=== PATIENT | female | born 1980 | race American Indian/Alaskan Native ===

== ENCOUNTER 2016-10-04 12:23 | Emergency (ER) | payer MEDICAID ==
[2016-10-04 12:32] VITALS: BP 141/100
[2016-10-04 13:02] LABS: Basophils % (Auto) 1.1 % (0.0-1.8); Eosinophils % (Auto) 2.5 % (0.0-4.3); Hematocrit 36.5 % (30.3-42.9); Hemoglobin 12.5 gm/dl (10.1-14.3); Mean Corpuscular HGB Conc 34 % (30-34); Mean Corpuscular Hemoglobin 29 pg (28-32); Mean Corpuscular Volume 85 fl (79-97); Platelet Count 228 K/mm3 (140-440); Red Cell Distribution Width 13.6 % (13.2-15.2); White Blood Count 7.1 K/mm3 (4.5-11.0)
--- NOTE | 2016-10-04 15:36 | Ultrasound Report ---
FINAL REPORT PROCEDURE: US OB TRANSVAGINAL TECHNIQUE: Real-time transvaginal sonography of the uterus, placenta, amniotic fluid, adnexa, and fetus was performed with image documentation. Measurements were obtained to determine age/size. M-mode Doppler was used to document heartbeat. CPT 78912 HISTORY: poss misscarriage COMPARISON: No prior studies are available for comparison. FINDINGS: A fluid-filled structure is noted in the endometrial cavity measuring 35 millimeters in average diameter corresponding to 8 weeks and 5 days of gestational age. There is no evidence of any pole. Uterus measures 12 x 8 x 9 centimeters in size. A large well-defined cystic lesion measuring 5.5 x 4.6 x 5.4 centimeters is noted in the left adnexal region. There is a hypoechoic focal area in the right fundus measuring 2.2 x 1.9 x 2.5 centimeters IMPRESSION: A fluid filled structure in the endometrial cavity without pole most likely represents a partial . The fluid-filled sac diameter corresponds to 8 weeks and 5 days of gestational age. A simple appearing cyst in the left ovary measuring 5.5 x 4.6 x 5.4 centimeters. A hypoechoic lesion in the right fundus measuring 2.2 x 1.9 x 2.5 centimeters most likely represents a fibroid.
--- NOTE | 2016-10-04 15:38 | Ultrasound Report ---
FINAL REPORT PROCEDURE: US OB \T\lt; = 14 WEEKS FETUS TECHNIQUE: Real-time transabdominal sonography of the uterus, placenta, amniotic fluid, adnexa, and fetus was performed with image documentation. Measurements were obtained to determine age/size. M-mode Doppler was used to document heartbeat. CPT 83236 HISTORY: poss misscarriage COMPARISON: No prior studies are available for comparison. FINDINGS: There is a fluid-filled structure in the uterine cavity measuring 35 millimeters corresponding to a gestational age of 8 weeks and 5 days. There is no evidence of any pole. Uterus measures 12 x 8 x 9 centimeters in size. A large well-defined cystic lesion is noted in the left adnexal region measuring 5.5 x 4.6 x 5.4 centimeters. A hypoechoic lesion measuring 2.2 x 1.9 x 2.5 centimeters is noted in the right fundus IMPRESSION: A fluid filled structure in the uterus without a pole most likely represents a partial . Sac size corresponds to 5 8 weeks and 5 days of gestational age. A cystic lesion in the left adnexal region most likely represents a simple ovarian cyst. Hypoechoic lesion of the fundus on the right most likely represents a fibroid.
--- NOTE | 2016-10-04 15:40 | Emergency Department Report ---
HPI - General Chief Complaint: Vaginal Bleeding Time Seen by Provider: 10/04/16 15:19 - HPI HPI: This is a 36-year-old Afro-[place] female presents to the emergency department with complaint of vaginal bleeding that began this morning around 10 AM and has continued since. She has used about 5 pads since this time. It is associated with some abdominal cramping. The patient believes himself to be about 12 weeks and with 9 living children. She did not take anything for symptoms prior to presentation. She denies any other past nuchal history. She is on vitamins. She has an appointment on Thursday for [facility]. ED Past Medical Hx - Past Medical History Hx Hypertension: No Hx Congestive Heart Failure: No Hx Diabetes: No Hx Deep Vein Thrombosis: No Hx Renal Disease: No Hx Sickle Cell Disease: No Hx Seizures: No Hx Asthma: Yes Hx COPD: No Hx HIV: No - Surgical History Past Surgical History?: No - Social History Smoking Status: Never Smoker Substance Use Type: None - Medications Home Medications: Home Medications Medication Instructions Recorded Confirmed Last Taken Type Acetaminophen/Codeine [Tylenol #3] 1 tab PO TID PRN #21 tab 02/13/15 01/29/16 Unknown Rx Ibuprofen [Motrin] 800 mg PO Q8HR PRN #60 tablet 02/13/15 01/29/16 Unknown Rx methOCARBAMOL [Robaxin TAB] 500 mg PO BID #20 tab 02/13/15 01/29/16 Unknown Rx Acetaminophen/Codeine [Tylenol #3] 1 tab PO Q6H PRN #14 tab 03/17/15 01/29/16 Unknown Rx Phenazopyridine [Pyridium] 200 mg PO BID #6 tab 03/17/15 01/29/16 Unknown Rx Sulfamethoxazole/Trimethoprim 1 each PO BID #14 tablet 03/17/15 01/29/16 Unknown Rx [Bactrim DS TAB] Acetaminophen/Codeine [Tylenol #3] 1 tab PO Q6H PRN #20 tab 03/29/15 01/29/16 Unknown Rx Ibuprofen [Motrin 800 MG tab] 800 mg PO Q8HR PRN #30 tablet 03/29/15 01/29/16 Unknown Rx Albuterol 2 puff PRN PRN 01/29/16 01/29/16 Unknown History HYDROcodone/APAP 5-325 [[place] 1 each PO Q6HR PRN #10 tablet 10/04/16 Unknown Rx 5/325] Misoprostol [Cytotec] 200 mcg PO Q4H #4 tablet 10/04/16 Unknown Rx ED Review of Systems ROS: Stated complaint: MISCARRIAGE Other details as noted in HPI Comment: All other systems reviewed and negative Constitutional: denies: chills, fever Eyes: denies: eye pain, eye discharge, vision change ENT: denies: ear pain, throat pain Respiratory: denies: cough, shortness of breath, wheezing Cardiovascular: denies: chest pain, palpitations Gastrointestinal: abdominal pain (abdominal cramping). denies: nausea, diarrhea Genitourinary: other (vaginal bleeding). denies: urgency, dysuria, discharge Musculoskeletal: denies: back pain, joint swelling, arthralgia Skin: denies: rash, lesions Neurological: denies: headache, weakness, paresthesias Physical Exam - Physical Exam Vital Signs: Vital Signs 10/04/16 12:30 Temperature 98.6 F Pulse Rate 70 Respiratory 18 Rate Blood Pressure 141/100 [Right] O2 Sat by Pulse 100 Oximetry Physical Exam: GENERAL: The patient is well-developed well-nourished. HEENT: Normocephalic. Atraumatic. Extraocular motions are intact. Patient has moist mucous membranes. Pupils equal reactive to light bilaterally. NECK: Supple. Trachea is midline. CHEST/LUNGS: Clear to auscultation. There is no respiratory distress noted. HEART/CARDIOVASCULAR: Regular. There is no tachycardia. There is no gallop rub or murmur. ABDOMEN: Abdomen is soft, nontender. Patient has normal bowel sounds. There is no abdominal distention. SKIN: Skin is warm and dry. NEURO: The patient is awake, alert, and oriented. The patient is cooperative. The patient has no focal neurologic deficits. The patient has normal speech. MUSCULOSKELETAL: There is no tenderness or deformity. There is no limitation range of motion. There is no evidence of acute injury. ED Course Vital Signs 10/04/16 12:30 Temperature 98.6 F Pulse Rate 70 Respiratory 18 Rate Blood Pressure 141/100 [Right] O2 Sat by Pulse 100 Oximetry - Consultations Consultation #1: 10/04/16 15:56 I spoke with and, the scrum product owner for [facility], who feels that the patient can be started on Cytotec every 4 hours 4 pills and follow up with them on Thursday as previous scheduled for what appears to be a partial miscarriage. ED Medical Decision Making - Lab Data Result diagrams: 10/04/16 12:42 - Radiology Data Radiology results: report reviewed PROCEDURE: US OB TRANSVAGINAL TECHNIQUE: Real-time transvaginal sonography of the uterus, placenta, amniotic fluid, adnexa, and fetus was performed with image documentation. Measurements were obtained to determine age/size. M-mode Doppler was used to document heartbeat. CPT 39303 HISTORY: poss misscarriage COMPARISON: No prior studies are available for comparison. FINDINGS: A fluid-filled structure is noted in the endometrial cavity measuring 35 millimeters in average diameter corresponding to 8 weeks and 5 days of gestational age. There is no evidence of any pole. Uterus measures 12 x 8 x 9 centimeters in size. A large well-defined cystic lesion measuring 5.5 x 4.6 x 5.4 centimeters is noted in the left adnexal region. There is a hypoechoic focal area in the right fundus measuring 2.2 x 1.9 x 2.5 centimeters IMPRESSION: A fluid filled structure in the endometrial cavity without pole most likely represents a partial . The fluid-filled sac diameter corresponds to 8 weeks and 5 days of gestational age. A simple appearing cyst in the left ovary measuring 5.5 x 4.6 x 5.4 centimeters. A hypoechoic lesion in the right fundus measuring 2.2 x 1.9 x 2.5 centimeters most likely represents a fibroid. - Medical Decision Making 36-year-old female who is allegedly about 12 weeks presents to the ER with some vaginal spotting and light abdominal cramping. Patient has a beta hCG of about 9800. Complete blood count is unremarkable. There is no significant discomfort to palpation of the abdomen and otherwise physical examination appears normal. Ultrasound however shows concern for partial as there is a fluid-filled sac in the uterus that would be about 9 weeks gestation there is no pole, movement, heart tones. I spoke with the [facility] service at the patient has an appointment with on Thursday and they recommend Cytotec and follow-up on Thursday. I spoke with the patient regarding the Cytotec, and the very mild but remote possibility that this is an early and dates could be off, but the patient says that she would like to take the Cytotec despite any risks or side effects. She was given 200 mg to be taken every 4 hours 4 and was told to keep an appointment with [facility]. She will return to the ER with any worsening of her symptoms or any acute distress. - Differential Diagnosis , threatened miscarriage, spontaneous miscarriage, fibroids Critical Care Time: No Critical care attestation.: If time is entered above; I have spent that time in minutes in the direct care of this critically ill patient, excluding procedure time. ED Disposition Clinical Impression: Incomplete miscarriage Disposition: DC- TO HOME OR SELFCARE Is pt being admited?: No Condition: Stable Instructions: Spontaneous Miscarriage (ED) Additional Instructions: Please follow-up with [facility] on Thursday as previously scheduled. Take the Cytotec as prescribed. Return to the emergency department with any worsening of your symptoms or any acute distress. You've been prescribed a medication that is sedating. Therefore this medication cannot be mixed with alcohol, or taken prior to driving, working, or being responsible for children. Prescriptions: HYDROcodone/APAP 5-325 [[place] 5/325] 1 each PO Q6HR PRN #10 tablet PRN Reason: Pain Misoprostol [Cytotec] 200 mcg PO Q4H #4 tablet Referrals: [facility] [Provider Group] - 10/06/16 Forms: Work/School Release Form(ED) Time of Disposition: 15:56
[2016-10-04 16:26] LABS: Bilirubin,Urine NEG (Negative); Blood,Urine LG (Negative); Ketones,Urine NEG (Negative); Leukocyte Esterase,Urine NEG (Negative); Nitrite,Urine NEG (Negative); Protein,Urine <15 mg/dL mg/dL (Negative); Urobilinogen,Urine < 2.0 mg/dL (<2.0)
[2016-10-04 16:27] LABS: RBC,Urine < 1.0 /HPF (0.0-6.0)
[2016-10-04 16:28] LABS: WBC,Urine < 1.0 /HPF (0.0-6.0)
== END 2016-10-04 16:06 | disposition home or self-care (01) ==
LOC: ED 12:23
DX: O03.4 Incomplete spontaneous abortion without complication (principal); J45.909 Unspecified asthma, uncomplicated; Z3A.12 12 weeks gestation of pregnancy
CPT/HCPCS: 36415; 76801; 76817; 81001; 84702; 85025; 86850; 86900; 86901

== ENCOUNTER 2017-01-11 10:18 | Emergency (ER) | payer MEDICAID ==
[2017-01-11 11:10] LABS: Hemoglobin 11.6 gm/dl (10.1-14.3); Mean Corpuscular HGB Conc 31 % (30-34); Mean Corpuscular Volume 76 fl (79-97); Platelet Count 325 K/mm3 (140-440); White Blood Count 6.2 K/mm3 (4.5-11.0)
[2017-01-11 11:18] LABS: Basophils % (Auto) 1.1 % (0.0-1.8); Eosinophils % (Auto) 2.4 % (0.0-4.3); Mean Corpuscular Hemoglobin 24 pg (28-32); Red Cell Distribution Width 21.2 % (13.2-15.2)
[2017-01-11 11:35] LABS: Anion Gap 16 mmol/L; BUN/Creatinine Ratio 16; Blood Urea Nitrogen 11 mg/dL (7-17); Calcium 8.9 mg/dL (8.4-10.2); Carbon Dioxide 23 mmol/L (22-30); Glucose 111 mg/dL (65-100); Potassium 3.8 mmol/L (3.6-5.0); Sodium 135 mmol/L (137-145)
[2017-01-11 13:30] LABS: INR 0.97 (0.87-1.13)
[2017-01-11 13:31] LABS: Partial Thromboplastin Time 33.9 Sec. (24.2-36.6)
--- NOTE | 2017-01-11 16:48 | Emergency Department Report ---
ED Chest Pain HPI - General Chief Complaint: Chest Pain Stated Complaint: CHEST PAIN Time Seen by Provider: 01/11/17 16:41 Source: patient Mode of arrival: Wheelchair Limitations: No Limitations - History of Present Illness Initial Comments: 36 yo female with lleft sided chest pain . since this morning at 0800 The pain continued for 2 hours and then she had a syncopal episode that she felt lasted one minute. pt describes pain as sharp, associated with nausea, no vomiting and associated with cough for few days. Pt has been her since early this am and seem by me at 1641. MD Complaint: chest pain -: Gradual, hour(s) (8) Onset: during rest Pain Location: left chest Pain Radiation: LUE (tingling) Severity scale (0 -10): 10 (when it began, but 5/10 now) Quality: sharp Consistency: constant Improves With: nothing Worsens With: nothing Context: recent illness (coughing) - Related Data Home Medications Medication Instructions Recorded Confirmed Last Taken Albuterol 2 puff PRN PRN 01/29/16 01/29/16 Unknown Previous Rx's Medication Instructions Recorded Last Taken Type Acetaminophen/Codeine [Tylenol #3] 1 tab PO TID PRN #21 tab 02/13/15 Unknown Rx Ibuprofen [Motrin] 800 mg PO Q8HR PRN #60 tablet 02/13/15 Unknown Rx methOCARBAMOL [Robaxin TAB] 500 mg PO BID #20 tab 02/13/15 Unknown Rx Acetaminophen/Codeine [Tylenol #3] 1 tab PO Q6H PRN #14 tab 03/17/15 Unknown Rx Phenazopyridine [Pyridium] 200 mg PO BID #6 tab 03/17/15 Unknown Rx Sulfamethoxazole/Trimethoprim 1 each PO BID #14 tablet 03/17/15 Unknown Rx [Bactrim DS TAB] Acetaminophen/Codeine [Tylenol #3] 1 tab PO Q6H PRN #20 tab 03/29/15 Unknown Rx Ibuprofen [Motrin 800 MG tab] 800 mg PO Q8HR PRN #30 tablet 03/29/15 Unknown Rx HYDROcodone/APAP 5-325 [[place] 1 each PO Q6HR PRN #10 tablet 10/04/16 Unknown Rx 5/325] Misoprostol [Cytotec] 200 mcg PO Q4H #4 tablet 07/15/17 Unknown Rx Allergies Allergy/AdvReac Type Severity Reaction Status Date / Time lisinopril AdvReac Rash Verified 01/11/17 10:33 Heart Score - HEART Score History: Slightly suspicious (NO SUSPICION BUT THSI WAS NOT A CHOICE GIVEN BY EMR) EKG: Normal Age: < 45 Risk factors: No known risk factors Troponin: < normal limit HEART Score: 0 - Critical Actions Critical Actions: 0-3 pts:0.9-1.7%risk of adverse cardiac event.Candidate for discharge ED Review of Systems ROS: Stated complaint: CHEST PAIN Other details as noted in HPI Constitutional: denies: chills, fever Eyes: denies: eye pain, eye discharge, vision change ENT: denies: ear pain, throat pain Respiratory: cough. denies: shortness of breath, wheezing Cardiovascular: chest pain, syncope. denies: palpitations, dyspnea on exertion , orthopnea Endocrine: no symptoms reported Gastrointestinal: nausea. denies: abdominal pain, vomiting, diarrhea Genitourinary: denies: urgency, dysuria, discharge Musculoskeletal: denies: back pain, joint swelling, arthralgia Skin: denies: rash, lesions Neurological: denies: headache, weakness, paresthesias Psychiatric: denies: anxiety, depression Hematological/Lymphatic: denies: easy bleeding, easy bruising ED Past Medical Hx - Past Medical History Hx Hypertension: Yes Hx Congestive Heart Failure: No Hx Diabetes: No Hx Deep Vein Thrombosis: No Hx Renal Disease: No Hx Sickle Cell Disease: No Hx Seizures: No Hx Asthma: Yes Hx COPD: No Hx HIV: No - Surgical History Past Surgical History?: No - Social History Smoking Status: Never Smoker Substance Use Type: None - Medications Home Medications: Home Medications Medication Instructions Recorded Confirmed Last Taken Type Acetaminophen/Codeine [Tylenol #3] 1 tab PO TID PRN #21 tab 02/13/15 01/29/16 Unknown Rx Ibuprofen [Motrin] 800 mg PO Q8HR PRN #60 tablet 02/13/15 01/29/16 Unknown Rx methOCARBAMOL [Robaxin TAB] 500 mg PO BID #20 tab 02/13/15 01/29/16 Unknown Rx Acetaminophen/Codeine [Tylenol #3] 1 tab PO Q6H PRN #14 tab 03/17/15 01/29/16 Unknown Rx Phenazopyridine [Pyridium] 200 mg PO BID #6 tab 03/17/15 01/29/16 Unknown Rx Sulfamethoxazole/Trimethoprim 1 each PO BID #14 tablet 03/17/15 01/29/16 Unknown Rx [Bactrim DS TAB] Acetaminophen/Codeine [Tylenol #3] 1 tab PO Q6H PRN #20 tab 03/29/15 01/29/16 Unknown Rx Ibuprofen [Motrin 800 MG tab] 800 mg PO Q8HR PRN #30 tablet 03/29/15 01/29/16 Unknown Rx Albuterol 2 puff PRN PRN 01/29/16 01/29/16 Unknown History HYDROcodone/APAP 5-325 [[place] 1 each PO Q6HR PRN #10 tablet 10/04/16 Unknown Rx 5/325] Misoprostol [Cytotec] 200 mcg PO Q4H #4 tablet 10/04/16 Unknown Rx ED Physical Exam - General Limitations: No Limitations General appearance: alert, in no apparent distress (does not seem to be in any pain whatsoever) - Head Head exam: Present: atraumatic, normocephalic - Eye Eye exam: Present: normal appearance - ENT ENT exam: Present: mucous membranes moist - Neck Neck exam: Present: normal inspection - Respiratory Respiratory exam: Present: normal lung sounds bilaterally. Absent: respiratory distress, wheezes, rales, rhonchi, stridor, accessory muscle use - Cardiovascular Cardiovascular Exam: Present: regular rate, normal rhythm, normal heart sounds. Absent: systolic murmur, diastolic murmur, rubs, gallop - GI/Abdominal GI/Abdominal exam: Present: soft, normal bowel sounds. Absent: tenderness, guarding, rebound - Rectal Rectal exam: Present: deferred - Extremities Exam Extremities exam: Present: normal inspection, full ROM - Back Exam Back exam: Present: normal inspection, full ROM - Neurological Exam Neurological exam: Present: alert, oriented X3 - Psychiatric Psychiatric exam: Present: depressed, flat affect - Skin Skin exam: Present: warm, dry, intact, normal color. Absent: rash ED Course Vital Signs 01/11/17 01/11/17 01/11/17 10:33 17:13 17:35 Temperature 98.8 F 98.6 F Pulse Rate 78 65 Pulse Rate [ 60 Bilateral Upper Lobe] Respiratory 16 16 Rate Respiratory 18 Rate [Bilateral Upper Lobe] Blood Pressure 164/107 Blood Pressure 150/90 [Left] O2 Sat by Pulse 100 100 Oximetry 01/11/17 17:53 Temperature Pulse Rate Pulse Rate [ 61 Bilateral Upper Lobe] Respiratory Rate Respiratory 18 Rate [Bilateral Upper Lobe] Blood Pressure Blood Pressure [Left] O2 Sat by Pulse Oximetry ED Medical Decision Making - Lab Data Result diagrams: 01/11/17 10:39 01/11/17 10:39 - EKG Data -: EKG Interpreted by Me EKG shows normal: sinus rhythm, axis, intervals, ST-T waves (nopn-specific) Critical care attestation.: If time is entered above; I have spent that time in minutes in the direct care of this critically ill patient, excluding procedure time. ED Disposition Clinical Impression: Chest pain Qualifiers: Chest pain type: unspecified Qualified Code(s): R07.9 - Chest pain, unspecified Syncope Qualifiers: Syncope type: unspecified Qualified Code(s): R55 - Syncope and collapse Qualifiers: Weeks of gestation: less than 8 weeks Qualified Code(s): Z3A.01 - Less than 8 weeks gestation of Disposition: DC-01 TO HOME OR SELFCARE Is pt being admited?: No Does the pt Need Aspirin: No Condition: Stable Instructions: Chest Pain (ED), Syncope (ED) Referrals: MAYO QUINTANILLA PA [Primary Care Provider] - 3-5 Days Forms: Work/School Release Form(ED)
[2017-01-11] MEDS ORDERED: NACL 0.9% 1000 ML 1,000 ML IV ONE (17:01)
[2017-01-11] MEDS ORDERED: PROVENTIL IH ONE (17:16)
[2017-01-11 20:18] LABS: Urine Drugs of Abuse Note Disclamer
[2017-01-11 22:09] VITALS: BP 124/76
== END 2017-01-11 22:19 | disposition home or self-care (01) ==
LOC: ED 10:18
DX: O26.891 Other specified pregnancy related conditions, first trimester (principal); R07.9 Chest pain, unspecified; R55 Syncope and collapse; Z3A.01 Less than 8 weeks gestation of pregnancy; I10 Essential (primary) hypertension; J45.909 Unspecified asthma, uncomplicated; Z88.8 Allergy status to other drugs, medicaments and biological substances
CPT/HCPCS: 36415; 80048; 80307; 84484; 84702; 85025; 85379; 85610; 85730; 93005; 93010; 94640; 96360; 96361; 99284; J7030

== ENCOUNTER 2017-04-03 06:27 | Emergency (ER) | payer MEDICAID ==
[2017-04-03 08:22] VITALS: BP 133/94
[2017-04-03 09:01] LABS: Basophils % (Auto) 0.6 % (0.0-1.8); Eosinophils # (Auto) 0.2 K/mm3 (0.0-0.4); Eosinophils % (Auto) 2.5 % (0.0-4.3); Hematocrit 32.8 % (30.3-42.9); Hemoglobin 10.5 gm/dl (10.1-14.3); Lymphocytes # (Auto) 1.5 K/mm3 (1.2-5.4); Mean Corpuscular HGB Conc 32 % (30-34); Mean Corpuscular Volume 76 fl (79-97); Monocytes # (Auto) 0.5 K/mm3 (0.0-0.8); Monocytes % (Auto) 6.2 % (0.0-7.3); Platelet Count 251 K/mm3 (140-440); Red Blood Count 4.29 M/mm3 (3.65-5.03); Red Cell Distribution Width 18.1 % (13.2-15.2)
[2017-04-03 09:05] LABS: Mean Corpuscular Hemoglobin 24 pg (28-32)
[2017-04-03 09:22] LABS: Alanine Aminotransferase 7 units/L (7-56); Albumin 3.2 g/dL (3.9-5); BUN/Creatinine Ratio 12; Blood Urea Nitrogen 6 mg/dL (7-17); Calcium 8.3 mg/dL (8.4-10.2); Hemolysis Index 4
[2017-04-03 09:30] LABS: Bilirubin,Direct < 0.2 mg/dL (0-0.2)
== END 2017-04-03 09:00 | disposition left against medical advice (07) ==
LOC: ED 06:27
DX: O26.892 Other specified pregnancy related conditions, second trimester (principal); R10.2 Pelvic and perineal pain; Z3A.17 17 weeks gestation of pregnancy; Z53.21 Procedure and treatment not carried out due to patient leaving prior to being seen by health care provider
CPT/HCPCS: 36415; 80048; 80074; 82150; 83690; 84702; 85025

== ENCOUNTER 2017-06-28 10:04 | Outpatient (CLI) | payer MEDICAID ==
[2017-06-28] MEDS ORDERED: BICITRA PO ONE ×2 (10:20→10:43)
[2017-06-28 10:32] VITALS: BP 123/78
[2017-06-28] MEDS ORDERED: LACTATED RINGERS 500 ML IV ONE (10:40)
== END 2017-06-28 11:35 | disposition home or self-care (01) ==
LOC: TRG 10:04
PROVIDERS: ATTEND Obstetrics & Gynecology
DX: O47.03 False labor before 37 completed weeks of gestation, third trimester (principal); Z3A.29 29 weeks gestation of pregnancy
CPT/HCPCS: 59025

== ENCOUNTER 2017-08-18 11:21 | Outpatient (CLI) | payer MEDICAID ==
[2017-08-18 11:34] VITALS: BP 139/85
[2017-08-18] MEDS ORDERED: LACTATED RINGERS 500 ML IV ONE (11:36)
== END 2017-08-18 13:15 | disposition home or self-care (01) ==
LOC: TRG 11:21
PROVIDERS: ATTEND Obstetrics & Gynecology
DX: O09.523 Supervision of elderly multigravida, third trimester (principal); O47.03 False labor before 37 completed weeks of gestation, third trimester; Z3A.36 36 weeks gestation of pregnancy
CPT/HCPCS: 59025

== ENCOUNTER 2018-03-28 12:45 | Emergency (ER) | payer MEDICAID ==
[2018-03-28 13:12] VITALS: BP 145/96
[2018-03-28 13:53] LABS: HCG Qualitative,Urine Negative (Negative)
[2018-03-28 15:24] LABS: Basophils # (Auto) 0.1 K/mm3 (0.0-0.1); Basophils % (Auto) 0.9 % (0.0-1.8); Eosinophils # (Auto) 0.3 K/mm3 (0.0-0.4); Eosinophils % (Auto) 4.6 % (0.0-4.3); Hematocrit 34.8 % (30.3-42.9); Hemoglobin 11.5 gm/dl (10.1-14.3); Lymphocytes # (Auto) 1.7 K/mm3 (1.2-5.4); Lymphocytes % (Auto) 24.2 % (13.4-35.0); Mean Corpuscular HGB Conc 33 % (30-34); Mean Corpuscular Volume 85 fl (79-97); Monocytes # (Auto) 0.4 K/mm3 (0.0-0.8); Monocytes % (Auto) 5.8 % (0.0-7.3); Platelet Count 305 K/mm3 (140-440); Red Blood Count 4.09 M/mm3 (3.65-5.03); Red Cell Distribution Width 14.4 % (13.2-15.2)
--- NOTE | 2018-03-28 15:32 | Emergency Department Report ---
ED Abdominal Pain HPI - General Chief Complaint: Abdominal Pain Stated Complaint: STOMACH PAIN Time Seen by Provider: 03/28/18 14:59 Source: patient Mode of arrival: Ambulatory Limitations: No Limitations - History of Present Illness Initial Comments: This is a 38-year-old female nontoxic, well nourished in appearance, no acute signs of distress presents to the ED with c/o of abdominal pain 4 days. Patient denies any nausea or vomiting. Patient describes abdominal pain as cramping and aching with level of 3/10 in the epigastric area. Patient denies chest pain, short of breath, fever, chills, headache, stiff neck, numbness, nausea, vomiting, or tingling. Patient denies any diarrhea or constipation. Patient denies any recent travels. Patient stated allergies to Lisinopril. Patient stated PMH includes asthma and gastric ulcers. MD Complaint: abdominal pain -: days(s) (4) Location: epigastric Radiation: none Migration to: no migration Severity: mild Severity scale (0 -10): 3 Quality: cramping, aching Consistency: constant Improves With: nothing Worsens With: nothing Associated Symptoms: denies: nausea, vomiting, diarrhea, fever, chills, constipation, dysuria, hematemesis, hematochezia, melena, hematuria, anorexia, syncope - Related Data Home Medications Medication Instructions Recorded Confirmed Last Taken Albuterol 2 puff PRN PRN 01/29/16 09/09/17 2 Weeks Ago ~08/26/17 Previous Rx's Medication Instructions Recorded Last Taken Type Ibuprofen [Motrin] 800 mg PO Q8HR PRN #12 tablet 02/27/18 Unknown Rx ALBUTEROL Inhaler (OR & NICU) 2 puff IH QID PRN #1 inhalation 03/13/18 Unknown Rx [ProAir HFA Inhaler] predniSONE [Deltasone] 20 mg PO QDAY #5 tab 03/13/18 Unknown Rx traMADol [Ultram] 50 mg PO Q6HR PRN #12 tablet 03/13/18 Unknown Rx Acetaminophen/Codeine [Tylenol 1 tab PO Q6H PRN #12 tab 03/28/18 Unknown Rx /Codeine # 3 tab] Allergies Allergy/AdvReac Type Severity Reaction Status Date / Time lisinopril AdvReac Rash Verified 01/11/17 10:33 ED Review of Systems ROS: Stated complaint: STOMACH PAIN Other details as noted in HPI Constitutional: denies: chills, fever Eyes: denies: eye pain, eye discharge, vision change ENT: denies: ear pain, throat pain Respiratory: denies: cough, shortness of breath, wheezing Cardiovascular: denies: chest pain, palpitations Endocrine: no symptoms reported Gastrointestinal: abdominal pain. denies: nausea, vomiting, diarrhea Genitourinary: denies: urgency, dysuria, discharge Musculoskeletal: denies: back pain, joint swelling, arthralgia Skin: denies: rash, lesions Neurological: denies: headache, weakness, paresthesias Psychiatric: denies: anxiety, depression Hematological/Lymphatic: denies: easy bleeding, easy bruising ED Past Medical Hx - Past Medical History Hx Hypertension: Yes Hx Congestive Heart Failure: No Hx Diabetes: No Hx Deep Vein Thrombosis: No Hx Renal Disease: No Hx Sickle Cell Disease: No Hx Seizures: No Hx Asthma: Yes (use albuterol inhaler as needed) Hx COPD: No Hx HIV: No - Social History Smoking Status: Never Smoker Substance Use Type: None - Medications Home Medications: Home Medications Medication Instructions Recorded Confirmed Last Taken Type Albuterol 2 puff PRN PRN 01/29/16 09/09/17 2 Weeks Ago History ~08/26/17 Ibuprofen [Motrin] 800 mg PO Q8HR PRN #12 tablet 02/27/18 Unknown Rx ALBUTEROL Inhaler (OR & NICU) 2 puff IH QID PRN #1 inhalation 03/13/18 Unknown Rx [ProAir HFA Inhaler] predniSONE [Deltasone] 20 mg PO QDAY #5 tab 03/13/18 Unknown Rx traMADol [Ultram] 50 mg PO Q6HR PRN #12 tablet 03/13/18 Unknown Rx Acetaminophen/Codeine [Tylenol 1 tab PO Q6H PRN #12 tab 03/28/18 Unknown Rx /Codeine # 3 tab] ED Physical Exam - General Limitations: No Limitations General appearance: alert, in no apparent distress - Head Head exam: Present: atraumatic, normocephalic - Eye Eye exam: Present: normal appearance - Neck Neck exam: Present: normal inspection, full ROM - Respiratory Respiratory exam: Present: normal lung sounds bilaterally. Absent: respiratory distress, wheezes, rales, rhonchi, stridor, chest wall tenderness, accessory muscle use, decreased breath sounds, prolonged expiratory - Cardiovascular Cardiovascular Exam: Present: regular rate, normal rhythm, normal heart sounds. Absent: bradycardia, tachycardia, irregular rhythm, systolic murmur, diastolic murmur, rubs, gallop - GI/Abdominal GI/Abdominal exam: Present: soft, tenderness (epigastric), normal bowel sounds. Absent: distended, guarding, rebound, rigid, diminished bowel sounds - Expanded GI/Abdominal Exam Expanded GI/Abdominal exam: Absent: psoas sign, Foreman's sign, Rovsing's sign, tenderness at Mcburney's Point, ascites - Extremities Exam Extremities exam: Present: normal inspection, full ROM - Back Exam Back exam: Present: normal inspection, full ROM - Neurological Exam Neurological exam: Present: alert, oriented X3 - Psychiatric Psychiatric exam: Present: normal affect, normal mood - Skin Skin exam: Present: warm, dry, intact, normal color. Absent: rash ED Course Vital Signs 03/28/18 13:08 Temperature 97.8 F Pulse Rate 74 Respiratory 16 Rate Blood Pressure 145/96 O2 Sat by Pulse 100 Oximetry - Reevaluation(s) Reevaluation #1: 03/28/18 15:34 Patient is speaking in full sentences with no signs of distress noted. ED Medical Decision Making - Lab Data Result diagrams: 03/28/18 15:10 03/28/18 15:10 - Medical Decision Making This is a 38-year-old female that presents with abdominal pain. Patient is stable and was examined by me. There is slight abdominal tenderness. Negative signs of symptoms of appendicitis. Labs obtained. UA obtained. CT of abdomen obtained and dictated by the radiologist. Patient is notified of the report with no questions noted by the patient. Vital signs are stable prior to discharge. Patient received medical treatment in the ED which patient stated symptoms has resolved and subsided. A by mouth challenge has been obtained and patient tolerated well with no nausea vomiting. Patient was notified of strict precautions of appendicitis symptoms and to return to the ED if symptoms occurs as soon as possible. Patient was also instructed to Follow-up with a primary care doctor in 3-5 days or if symptoms worsen and continue return to emergency room as soon as possible. At time of discharge, the patient does not seem toxic or ill in appearance. No acute signs of distress noted. Patient agrees to discharge treatment plan of care. No further questions noted by the patient. Critical care attestation.: If time is entered above; I have spent that time in minutes in the direct care of this critically ill patient, excluding procedure time. 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 Do not operate any machinery while taking Tylenol with codeine as this may cause drowsiness. Prescriptions: Acetaminophen/Codeine [Tylenol /Codeine # 3 tab] 1 tab PO Q6H PRN #12 tab PRN Reason: Pain , Severe (7-10) Referrals: PRIMARY MD STEVEN [Primary Care Provider] - 3-5 Days ALEX PAUL MD [Staff Physician] - 3-5 Days [facility] [Provider Group] - 3-5 Days Forms: Work/School Release Form(ED)
[2018-03-28 15:35] LABS: Alanine Aminotransferase 9 units/L (7-56); Albumin 3.7 g/dL (3.9-5); BUN/Creatinine Ratio 28; Blood Urea Nitrogen 14 mg/dL (7-17); Calcium 8.6 mg/dL (8.4-10.2); Hemolysis Index 12
[2018-03-28 15:37] LABS: Bilirubin,Direct < 0.2 mg/dL (0-0.2)
[2018-03-28] MEDS ORDERED: NACL 0.9% 1000 ML 1,000 ML IV ONE (16:13)
[2018-03-28] MEDS ORDERED: TORADOL IV ONE (16:15)
[2018-03-28 16:25] LABS: Bilirubin,Urine NEG (Negative); Blood,Urine NEG (Negative); Color,Urine Yellow (Yellow); Mucus,Urine FEW /HPF; Protein,Urine <15 mg/dL mg/dL (Negative)
--- NOTE | 2018-03-28 17:39 | Cat Scan Report ---
FINAL REPORT EXAM: CT ABDOMEN PELVIS W CON HISTORY: abd pain TECHNIQUE: Following IV administration of 100 cc of Omnipaque 300 axial helical imaging was performe d through the abdomen and pelvis with sagittal and coronal reformatted images obtained. Delayed axial helical imaging was also performed through the abdomen and pelvis. Comparison: None FINDINGS: The lung bases are without infiltrate, pneumothorax or pleural fluid collection. The liver, spleen, pancreas, kidneys and adrenal glands are unremarkable. The gallbladder is mildly distended and unremarkable. The bowel is normal caliber. There is a moderate amount of stool in the ascending and transverse colo n. The appendix appears to be normal caliber and contains air. There is no evidence of pneumoperitoneum or free fluid. The abdominal aorta is normal caliber. There is no evidence of pathologic intra-abdominal adenopathy by CT size criteria. The urinary bladder is mildly distended and unremarkable. The uterus and adnexal are unremarkable. The bony structures are notable for the appearance of a disc bulge at the L5-S1 level. IMPRESSION: 1. No evidence of an acute intra-abdominal process. 2. Appearance of a disc bulge at the L5-S1 level.
== END 2018-03-28 19:32 | disposition home or self-care (01) ==
LOC: ED 12:45
DX: R10.13 Epigastric pain (principal); I10 Essential (primary) hypertension; J45.909 Unspecified asthma, uncomplicated; Z88.8 Allergy status to other drugs, medicaments and biological substances
CPT/HCPCS: 36415; 74177; 80048; 80076; 81001; 81025; 83690; 85025; 87086; 96374; 99284; J1885; J7030; Q9967; 96361

== ENCOUNTER 2018-10-24 08:29 | Emergency (ER) | payer MEDICAID ==
--- NOTE | 2018-10-24 09:55 | Emergency Department Report ---
ED General Adult HPI - General Chief complaint: Upper Respiratory Infection Stated complaint: 17WKS /CHEST PAIN/COUGH Time Seen by Provider: 10/24/18 08:53 Source: patient Mode of arrival: Ambulatory Limitations: No Limitations - History of Present Illness Initial comments: This is a 38-year-old female nontoxic, well nourished in appearance, no acute signs of distress presents to the ED with c/o of cough and chest tightness. 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 Patient currently stated that the symptoms have subsided and resolved since incident. Patient states she is currently 17 weeks but denies any abdominal pain, pelvic pain or vaginal bleeding. Patient currently states she is asymptomatic. Denies any chest pain, shortness of breath, fever, chills, nausea, vomiting, headache or stiff neck. Allergies to lisinopril. -: This morning Radiation: non-radiation Severity scale (0 -10): 0 Improves with: none Worsens with: none Associated Symptoms: denies other symptoms. denies: confusion, chest pain, cough, diaphoresis, fever/chills, headaches, loss of appetite, malaise, nausea/vomiting, rash, seizure, shortness of breath, syncope, weakness Treatments Prior to Arrival: none - Related Data Home Medications Medication Instructions Recorded Confirmed Last Taken Albuterol 2 puff PRN PRN 01/29/16 09/09/17 2 Weeks Ago ~08/26/17 Previous Rx's Medication Instructions Recorded Last Taken Type Ibuprofen [Motrin] 800 mg PO Q8HR PRN #12 tablet 02/27/18 Unknown Rx ALBUTEROL Inhaler (OR & NICU) 2 puff IH QID PRN #1 inhalation 03/13/18 Unknown Rx [ProAir HFA Inhaler] predniSONE [Deltasone] 20 mg PO QDAY #5 tab 03/13/18 Unknown Rx traMADol [Ultram] 50 mg PO Q6HR PRN #12 tablet 03/13/18 Unknown Rx Acetaminophen/Codeine [Tylenol 1 tab PO Q6H PRN #12 tab 03/28/18 Unknown Rx /Codeine # 3 tab] Allergies Allergy/AdvReac Type Severity Reaction Status Date / Time lisinopril AdvReac Rash Verified 01/11/17 10:33 ED Review of Systems ROS: Stated complaint: 17WKS /CHEST PAIN/COUGH Other details as noted in HPI Constitutional: denies: chills, fever Eyes: denies: eye pain, eye discharge, vision change ENT: denies: ear pain, throat pain Respiratory: denies: cough, shortness of breath, wheezing Cardiovascular: denies: chest pain, palpitations Endocrine: no symptoms reported Gastrointestinal: denies: abdominal pain, nausea, diarrhea Genitourinary: denies: urgency, dysuria, discharge Musculoskeletal: denies: back pain, joint swelling, arthralgia Skin: denies: rash, lesions Neurological: denies: headache, weakness, paresthesias Psychiatric: denies: anxiety, depression Hematological/Lymphatic: denies: easy bleeding, easy bruising ED Past Medical Hx - Past Medical History Hx Hypertension: Yes Hx Congestive Heart Failure: No Hx Diabetes: No Hx Deep Vein Thrombosis: No Hx Renal Disease: No Hx Sickle Cell Disease: No Hx Seizures: No Hx Asthma: Yes (use albuterol inhaler as needed) Hx COPD: No Hx HIV: No - Social History Smoking Status: Never Smoker Substance Use Type: None - Medications Home Medications: Home Medications Medication Instructions Recorded Confirmed Last Taken Type Albuterol 2 puff PRN PRN 01/29/16 09/09/17 2 Weeks Ago History ~08/26/17 Ibuprofen [Motrin] 800 mg PO Q8HR PRN #12 tablet 02/27/18 Unknown Rx ALBUTEROL Inhaler (OR & NICU) 2 puff IH QID PRN #1 inhalation 03/13/18 Unknown Rx [ProAir HFA Inhaler] predniSONE [Deltasone] 20 mg PO QDAY #5 tab 03/13/18 Unknown Rx traMADol [Ultram] 50 mg PO Q6HR PRN #12 tablet 03/13/18 Unknown Rx Acetaminophen/Codeine [Tylenol 1 tab PO Q6H PRN #12 tab 03/28/18 Unknown Rx /Codeine # 3 tab] ED Physical Exam - General Limitations: No Limitations General appearance: alert, in no apparent distress - Head Head exam: Present: atraumatic, normocephalic - Eye Eye exam: Present: normal appearance - Neck Neck exam: Present: normal inspection, full ROM. Absent: tenderness, meningismus, lymphadenopathy - Respiratory Respiratory exam: Present: normal lung sounds bilaterally. Absent: respiratory distress, wheezes, rales, rhonchi, stridor, chest wall tenderness, accessory muscle use, decreased breath sounds, prolonged expiratory - Cardiovascular Cardiovascular Exam: Present: regular rate, normal rhythm, normal heart sounds. Absent: bradycardia, tachycardia, irregular rhythm, systolic murmur, diastolic murmur, rubs, gallop - GI/Abdominal GI/Abdominal exam: Present: soft, normal bowel sounds. Absent: distended, tenderness, guarding, rebound, rigid, diminished bowel sounds - Extremities Exam Extremities exam: Present: normal inspection, full ROM, normal capillary refill. Absent: tenderness - Back Exam Back exam: Present: normal inspection, full ROM. Absent: tenderness, CVA tender ness (R), CVA tenderness (L), muscle spasm, paraspinal tenderness, vertebral tenderness, rash noted - Neurological Exam Neurological exam: Present: alert, oriented X3, normal gait - Psychiatric Psychiatric exam: Present: normal affect, normal mood - Skin Skin exam: Present: warm, dry, intact, normal color. Absent: rash ED Course Vital Signs 10/24/18 08:49 Temperature 98.8 F Pulse Rate 83 Respiratory 16 Rate Blood Pressure 135/84 O2 Sat by Pulse 99 Oximetry - Reevaluation(s) Reevaluation #1: 10/24/18 09:53 Patient is speaking in full sentences with no signs of distress noted. ED Medical Decision Making - Medical Decision Making This is a 38-year-old female that presents with cough to certain smell. Patient is speaking in full sentences with no signs of distress noted. Patient was discussed with Dr. Ankush Gates and agrees to the plan of care. Patient is currently asymptomatic. She was instructed to Follow-up with a primary care doctor in 3-5 days or if symptoms worsen and continue return to emergency room as soon as possible. At time of discharge, the patient does not seem toxic or ill in appearance. No acute signs of distress noted. Patient agrees to discharge treatment plan of care. No further questions noted by the patient. Critical care attestation.: If time is entered above; I have spent that time in minutes in the direct care of this critically ill patient, excluding procedure time. ED Disposition Clinical Impression: Exposure to chemical compounds, Cough Disposition: DC-01 TO HOME OR SELFCARE Is pt being admited?: No Does the pt Need Aspirin: No Condition: Stable Additional Instructions: Follow-up with a primary care doctor in 3-5 days or if symptoms worsen and continue return to emergency room as soon as possible. Limit exposure to certain chemicals that causes these symptoms. Referrals: PRIMARY CARE, [Referring] - 3-5 Days ALEX PAUL MD [Staff Physician] - 3-5 Days [facility] [Outside] - 3-5 Days Forms: Work/School Release Form(ED)
[2018-10-24 10:28] VITALS: BP 131/81
== END 2018-10-24 10:27 | disposition home or self-care (01) ==
LOC: ED 08:29
DX: O26.892 Other specified pregnancy related conditions, second trimester (principal); R05 Cough; R07.89 Other chest pain; O10.912 Unspecified pre-existing hypertension complicating pregnancy, second trimester; O99.512 Diseases of the respiratory system complicating pregnancy, second trimester; J45.909 Unspecified asthma, uncomplicated; Z79.899 Other long term (current) drug therapy; Z88.8 Allergy status to other drugs, medicaments and biological substances; Z3A.17 17 weeks gestation of pregnancy
CPT/HCPCS: 99282

== ENCOUNTER 2019-03-08 18:44 | Inpatient (IN) | payer MEDICAID ==
[2019-03-08] MEDS ORDERED: ePHEDrine SULFATE 50 MG/1 ML INJ IV PRN (21:06)
[2019-03-08] MEDS ORDERED: MINERAL OIL 30 ML ORAL LIQD PO PRN (21:06)
[2019-03-08] MEDS ORDERED: fentaNYL 100 MCG/2 ML INJ IV PRN (21:06)
[2019-03-08] MEDS ORDERED: LIDOCAINE (2%) 20 MG/1 ML VIAL 20 ML MDV INFILTRATI ONE (21:06)
[2019-03-08] MEDS ORDERED: TERBUTALINE 1 MG/1 ML INJ IVP PRN (21:06)
[2019-03-08] MEDS ORDERED: TERBUTALINE 1 MG/1 ML INJ SUB-Q PRN (21:06)
[2019-03-08] MEDS ORDERED: LACTATED RINGERS 1,000 ML IV SCH (22:00)
[2019-03-08] MEDS ORDERED: OXYTOCIN 20 UNIT/1000ML DRIP 20 UNITS/1,000 ML BAG IV SCH (22:00)
[2019-03-08 22:32] LABS: Hematocrit 28.7 % (30.3-42.9); Hemoglobin 9.6 gm/dl (10.1-14.3); Mean Corpuscular HGB Conc 34 % (30-34); Mean Corpuscular Volume 78 fl (79-97); Platelet Count 255 K/mm3 (140-440); Red Blood Count 3.69 M/mm3 (3.65-5.03); Red Cell Distribution Width 17.1 % (13.2-15.2)
[2019-03-08 22:57] LABS: Uric Acid 4.8 mg/dL (3.5-7.6)
[2019-03-08] MEDS ORDERED: AMPICILLIN/NS 2 GM/100 ML 2 GM/100 ML BAG IV ONE ×2 (23:00→23:10)
[2019-03-08] MEDS ORDERED: DINOPROSTONE 10 MG VAG SUPP VG ONE (23:17)
--- NOTE | 2019-03-08 23:20 | History and Physical Report ---
History of Present Illness Date of examination: 03/08/19 Date of admission: 03/08/19 Chief complaint: Induction of Labor History of present illness: 39yo G 12 P 10 0 1 10 at 36 weeks [address] [facility] for induction of labor secondary to poorly-controlled CHTN with symptomatic elevated BP further compromised by GDM A1. She c/o headache and visual disturbances but denies RUQ pain or N/V. She reports +FMs but denies VB or LOF. She is a [employer] patient who initiated care at 10 weeks gestation. Her course was complicated by CHTN (on Labetalol 100mg PO BID), GDM diet-controlled, AMA, h/o asthma (no recent attacks but inhaler last used 4 days ago), depression & thyroid nodule, anemia (on iron therapy), grand multiparity, h/o child with defects and Vit D deficiency. Her care was co-managed with [facility]. LABS: Opos, Antibody Screen neg, Pap Smear normal, RI, VDRL NR, HBsAg neg, HIV neg, Diabetes Screen 204, GC/CT/Trich neg, GBS pos. Past History Past Medical History: asthma, hypertension, other (cardiac murmur, depression, thyroid nodule, varicella) Past Surgical History: other (thyroid biopsy, D&C) Family/Genetic History: hypertension, cancer (breast, cervical, colon), other (major depression) Social history: , lives with family, full code. denies: smoking, alcohol abuse, prescription drug abuse, IV drug use - Obstetrical History Expected Date of Delivery: 04/02/19 Actual Gestation: 36 Week(s) 4 Day(s) : 12 Para: 10 Hx # Term Pregnancies: 10 Number of Pregnancies: 0 Spontaneous Abortions: 1 Induced : 0 Number of Living Children: 10 Medications and Allergies Allergies Allergy/AdvReac Type Severity Reaction Status Date / Time lisinopril AdvReac Rash Verified 03/08/19 22:43 Home Medications Medication Instructions Recorded Confirmed Last Taken Type Albuterol 2 puff PRN PRN 01/29/16 03/09/19 03/04/19 08:00 History Ibuprofen [Motrin] 800 mg PO Q8HR PRN #12 tablet 02/27/18 03/09/19 Unknown Rx ALBUTEROL Inhaler (OR & NICU) 2 puff IH QID PRN #1 inhalation 03/13/18 03/09/19 Unknown Rx [ProAir HFA Inhaler] predniSONE [Deltasone] 20 mg PO QDAY #5 tab 03/13/18 03/09/19 Unknown Rx traMADoL [Ultram] 50 mg PO Q6HR PRN #12 tablet 03/13/18 03/09/19 Unknown Rx Acetaminophen/Codeine [Tylenol 1 tab PO Q6H PRN #12 tab 03/28/18 03/09/19 Unknown Rx /Codeine # 3 tab] Plus Tablet 1 tab PO QDAY 03/09/19 03/09/19 03/08/19 10:00 History 1 tab labetaloL [Labetalol 100mg TAB] 100 mg PO BID 03/09/19 03/09/19 03/08/19 10:00 History Active Meds: Active Medications Butorphanol Tartrate (Stadol) 2 mg IV Q2H PRN PRN Reason: Pain , Severe (7-10) Dinoprostone (Cervidil) 10 mg VG ONCE ONE Stop: 03/08/19 23:18 Ephedrine Sulfate (Ephedrine Sulfate) 10 mg IV Q2M PRN PRN Reason: Hypotension Fentanyl (Sublimaze) 100 mcg IV Q2H PRN PRN Reason: Labor Pain Last Admin: 03/08/19 22:49 Dose: 100 mcg Documented by: Oxytocin/Sodium Chloride (Pitocin/Ns 20 Unit/1000ml Drip) 20 units in 1,000 mls @ 125 mls/hr IV DIRECT GIANFRANCO Lactated Ringer's (Lactated Ringers) 1,000 mls @ 125 mls/hr IV DIRECT GIANFRANCO Ampicillin Sodium (Ampicillin/Ns 1 Gm/50 Ml) 1 gm in 50 mls @ 100 mls/hr IV Q4 HR GIANFRANCO; Protocol Mineral Oil (Mineral Oil) 30 ml PO QHS PRN PRN Reason: Constipation Terbutaline Sulfate (Brethine) 0.25 mg SUB-Q ONCE PRN PRN Reason: Hyperstimulation/Hypertonicity Terbutaline Sulfate (Brethine) 0.25 mg IVP ONCE PRN PRN Reason: Hyperstimulation/Hypertonicity Review of Systems All systems: negative - Vital Signs Vital signs: Vital Signs Temp Resp 98.9 F 18 03/08/19 19:59 12/17/19 19:59 Temp Pulse Resp BP Pulse Ox 98.9 F 100 H 16 144/84 99 03/08/19 19:59 03/08/19 23:10 03/08/19 22:49 03/08/19 23:01 03/08/19 23:10 - Physical Exam Genitourinary (Female): Positive: normal external genitalia, normal perenium. N egative: perineal/vulvar lesions Vagina: Positive: normal moisture Uterus: Positive: normal size, normal contour Anus/Rectum: Positive: normal perianal skin Extremities: Positive: normal Deep Tendon Reflex Grade: Normal +2 - Obstetrical FHR: auscultation normal, category 1 FHR comments: baseline 120, moderate variability, 15x15 accels, no decels Uterine Contraction Monitor Mode: External Cervical Dilatation: 2 Cervical Effacement Percentage: 50 station: -3 Uterine Contraction Pattern: Irregular Results Result Diagrams: 03/08/19 20:10 Abnormal lab results 03/08/19 03/08/19 Range/Units 20:10 20:10 Hgb 9.6 L (10.1-14.3) gm/dl Hct 28.7 L (30.3-42.9) % MCV 78 L (79-97) fl MCH 26 L (28-32) pg RDW 17.1 H (13.2-15.2) % AST 75 H (5-40) units/L Lactate Dehydrogenase 629 H (91-180) units/L All other labs normal. Assessment and Plan - Patient Problems (1) 36 weeks gestation of Current Visit: Yes Status: Acute (2) Chronic hypertension with superimposed pre-eclampsia Current Visit: Yes Status: Acute Plan to address problem: Magnesium sulfate therapy initiated. Patient education completed. Labetalol 200mg PO BID initiated (3) Gestational diabetes mellitus, class A1 Current Visit: Yes Status: Acute Plan to address problem: Diet-controlled Blood glucose: 71 Blood glucose checks q4hrs (4) Encounter for induction of labor Current Visit: Yes Status: Acute Plan to address problem: Admit to L&D with routine labor orders Cervidil for cervical ripening Pitocin for labor augmentation, if indicated Anticipate vaginal delivery (5) Advanced maternal age in multigravida Current Visit: No Status: Acute Qualifiers: Trimester: third trimester Qualified Code(s): O09.523 - Supervision of elderly multigravida, third trimester (6) Grand multiparity Current Visit: Yes Status: Acute (7) Group B Streptococcus carrier, +RV culture, currently Current Visit: Yes Status: Acute Plan to address problem: Start ampicillin for GBS prophylaxis
[2019-03-08] MEDS ORDERED: MAGNESIUM SULFATE 4 GM/100 ML BAG IV ONE (23:41)
[2019-03-08] MEDS ORDERED: MAGNESIUM SULFATE 40GM/1000ML 40 GM/1,000 ML BAG IV SCH (23:45)
[2019-03-09] MEDS ORDERED: ALBUTEROL 2.5 MG/3 ML NEBU IH PRN (00:42)
[2019-03-09] MEDS ORDERED: BETAMET ACET/BETAMET NA PH 6 MG/ML INJ 5 ML MDV IM SCH (01:00)
[2019-03-09] MEDS: BUTORPHANOL 2 MG/1 ML INJ IV PRN ×2 (01:31→05:05)
[2019-03-09 03:00] LABS: Bacteria,Urine 1+ /HPF (Negative); Bilirubin,Urine NEG (Negative); Blood,Urine SM (Negative); Color,Urine Yellow (Yellow); Mucus,Urine FEW /HPF; Protein,Urine <15 mg/dL mg/dL (Negative); Urobilinogen,Urine < 2.0 mg/dL (<2.0)
[2019-03-09] MEDS: AMPICILLIN/NS 1 GM/50 ML 1 GM/50 ML BAG IV SCH ×4 (03:34→16:46)
--- NOTE | 2019-03-09 10:04 | Progress Note ---
Assessment and Plan IOL CHTN poorly controlled: on magnesium sulfate BP's currently <140/90, labetalol 20mg IVP for BP>160/110 GDMA1 cervidil removed, plan for AOL with oxytocin maternal/ status reassuring overall Josephine Negrete MD Subjective - Subjective Date of service: 03/09/19 Principal diagnosis: IOL, poorly controlled HTN, GDMA1 Interval history: Patient asleep SP stadol 2mg at 05:05 03/09/19 no complaints Objective - Vital Signs Vital Signs: Vital Signs - 12hr 03/08/19 03/08/19 03/08/19 22:49 23:00 23:01 Pulse Rate 78 Respiratory 16 Rate Blood Pressure 144/84 O2 Sat by Pulse 79 L Oximetry 03/08/19 03/08/19 03/09/19 23:05 23:10 00:03 Pulse Rate 80 100 H 79 Respiratory Rate Blood Pressure O2 Sat by Pulse 98 99 98 Oximetry 03/09/19 03/09/19 03/09/19 00:08 00:13 00:18 Pulse Rate 88 84 77 Respiratory Rate Blood Pressure O2 Sat by Pulse 98 100 100 Oximetry 03/09/19 03/09/19 03/09/19 00:23 00:28 00:33 Pulse Rate 95 H 93 H 93 H Respiratory Rate Blood Pressure O2 Sat by Pulse 97 99 99 Oximetry 03/09/19 03/09/19 03/09/19 00:38 00:43 00:48 Pulse Rate 94 H 95 H 97 H Respiratory Rate Blood Pressure O2 Sat by Pulse 99 99 100 Oximetry 03/09/19 03/09/19 03/09/19 00:50 00:52 00:53 Pulse Rate 102 H 104 H 98 H Respiratory Rate Blood Pressure 159/93 O2 Sat by Pulse 90 99 Oximetry 03/09/19 03/09/19 03/09/19 00:58 01:01 01:29 Pulse Rate 103 H 113 H 92 H Respiratory Rate Blood Pressure 174/97 O2 Sat by Pulse 100 85 Oximetry 03/09/19 03/09/19 03/09/19 01:31 01:34 01:35 Pulse Rate 94 H 87 Respiratory 18 Rate Blood Pressure O2 Sat by Pulse 94 93 Oximetry 03/09/19 03/09/19 03/09/19 01:39 01:41 01:44 Pulse Rate 90 93 H 89 Respiratory Rate Blood Pressure 136/77 O2 Sat by Pulse 94 94 95 Oximetry 03/09/19 03/09/19 03/09/19 01:48 01:49 01:54 Pulse Rate 92 H 88 89 Respiratory Rate Blood Pressure O2 Sat by Pulse 94 95 94 Oximetry 03/09/19 03/09/19 03/09/19 01:55 01:59 02:00 Pulse Rate 89 90 89 Respiratory Rate Blood Pressure 124/70 O2 Sat by Pulse 94 95 94 Oximetry 03/09/19 03/09/19 03/09/19 02:04 02:06 02:09 Pulse Rate 89 90 89 Respiratory Rate Blood Pressure O2 Sat by Pulse 95 94 95 Oximetry 03/09/19 03/09/19 03/09/19 02:11 02:14 02:16 Pulse Rate 89 86 90 Respiratory Rate Blood Pressure 108/61 O2 Sat by Pulse 94 95 94 Oximetry 03/09/19 03/09/19 03/09/19 02:19 02:24 02:29 Pulse Rate 88 82 84 Respiratory Rate Blood Pressure O2 Sat by Pulse 95 96 95 Oximetry 03/09/19 03/09/19 03/09/19 02:31 02:34 02:39 Pulse Rate 85 84 84 Respiratory 18 Rate Blood Pressure 113/63 O2 Sat by Pulse 95 95 Oximetry 03/09/19 03/09/19 03/09/19 02:44 02:46 02:49 Pulse Rate 90 88 84 Respiratory Rate Blood Pressure 121/71 O2 Sat by Pulse 96 96 Oximetry 03/09/19 03/09/19 03/09/19 02:54 02:59 03:00 Pulse Rate 85 86 82 Respiratory Rate Blood Pressure 111/61 O2 Sat by Pulse 95 96 Oximetry 03/09/19 03/09/19 03/09/19 03:04 03:09 03:14 Pulse Rate 88 83 81 Respiratory Rate Blood Pressure O2 Sat by Pulse 96 96 94 Oximetry 03/09/19 03/09/19 03/09/19 03:15 03:19 03:24 Pulse Rate 83 87 90 Respiratory Rate Blood Pressure 115/64 O2 Sat by Pulse 95 96 Oximetry 03/09/19 03/09/19 03/09/19 03:29 03:31 03:34 Pulse Rate 84 84 79 Respiratory Rate Blood Pressure 122/75 O2 Sat by Pulse 96 97 Oximetry 1203/09/19 03/09/19 03:39 03:44 03:45 Pulse Rate 84 84 86 Respiratory Rate Blood Pressure 127/74 O2 Sat by Pulse 97 97 Oximetry 03/09/19 03/09/19 03/09/19 03:49 03:54 03:59 Pulse Rate 85 85 83 Respiratory Rate Blood Pressure O2 Sat by Pulse 97 97 97 Oximetry 03/09/19 03/09/19 03/09/19 04:00 04:04 04:09 Pulse Rate 85 87 89 Respiratory Rate Blood Pressure 119/72 O2 Sat by Pulse 97 97 Oximetry 03/09/19 03/09/19 03/09/19 04:14 04:15 04:19 Pulse Rate 83 83 83 Respiratory Rate Blood Pressure 123/71 O2 Sat by Pulse 98 97 Oximetry 03/09/19 03/09/19 03/09/19 04:24 04:29 04:30 Pulse Rate 95 H 103 H 94 H Respiratory Rate Blood Pressure 128/75 O2 Sat by Pulse 97 96 Oximetry 03/09/19 03/09/19 03/09/19 04:34 04:39 04:44 Pulse Rate 90 90 88 Respiratory Rate Blood Pressure O2 Sat by Pulse 97 95 99 Oximetry 03/09/19 03/09/19 03/09/19 04:46 04:49 04:54 Pulse Rate 93 H 91 H 93 H Respiratory Rate Blood Pressure 130/82 O2 Sat by Pulse 99 98 Oximetry 03/09/19 03/09/19 03/09/19 04:59 05:00 05:01 Pulse Rate 88 87 92 H Respiratory Rate Blood Pressure 131/76 O2 Sat by Pulse 98 92 Oximetry 03/09/19 03/09/19 03/09/19 05:04 05:09 05:14 Pulse Rate 80 82 83 Respiratory Rate Blood Pressure O2 Sat by Pulse 94 95 95 Oximetry 03/09/1903/09/03/09/19 05:15 05:19 05:24 Pulse Rate 81 84 85 Respiratory Rate Blood Pressure 120/66 O2 Sat by Pulse 94 95 96 Oximetry 03/09/1903/09/03/09/19 05:25 05:29 05:32 Pulse Rate 82 81 83 Respiratory Rate Blood Pressure 119/66 O2 Sat by Pulse 93 96 94 Oximetry 03/09/1903/09/19 12/18/19 05:34 05:39 05:40 Pulse Rate 85 86 84 Respiratory Rate Blood Pressure O2 Sat by Pulse 95 95 94 Oximetry 19 03/09/03/09/19 05:44 05:46 05:49 Pulse Rate 84 85 86 Respiratory Rate Blood Pressure 122/71 O2 Sat by Pulse 95 96 Oximetry 18/19 18/03/09/19 05:54 05:59 06:01 Pulse Rate 83 85 86 Respiratory Rate Blood Pressure O2 Sat by Pulse 96 96 94 Oximetry 03/09/19 03/09/19 03/09/19 06:04 06:09 06:12 Pulse Rate 84 82 83 Respiratory Rate Blood Pressure O2 Sat by Pulse 96 97 93 Oximetry 03/09/19 03/09/19 03/09/19 06:14 06:19 06:24 Pulse Rate 83 82 81 Respiratory Rate Blood Pressure 120/60 O2 Sat by Pulse 96 97 97 Oximetry 03/09/19 03/09/19 03/09/19 06:28 06:29 06:34 Pulse Rate 99 H 87 84 Respiratory Rate Blood Pressure O2 Sat by Pulse 93 96 97 Oximetry 03/09/1903/09/03/09/19 06:37 06:39 06:44 Pulse Rate 86 82 Respiratory 16 Rate Blood Pressure O2 Sat by Pulse 97 97 Oximetry 03/09/1903/09/03/09/19 06:47 06:49 06:53 Pulse Rate 82 88 86 Respiratory Rate Blood Pressure 124/76 O2 Sat by Pulse 94 97 Oximetry 03/09/1903/09/03/09/19 06:54 06:56 07:00 Pulse Rate 84 87 83 Respiratory Rate Blood Pressure O2 Sat by Pulse 97 94 97 Oximetry 03/09/1903/09/03/09/19 07:04 07:09 07:15 Pulse Rate 86 84 87 Respiratory Rate Blood Pressure O2 Sat by Pulse 98 97 98 Oximetry 03/09/1903/09/18 07:19 07:23 07:24 Pulse Rate 85 102 H 94 H Respiratory Rate Blood Pressure 122/86 O2 Sat by Pulse 97 97 Oximetry 18/18/03/09/19 07:29 07:35 07:40 Pulse Rate 80 81 80 Respiratory Rate Blood Pressure O2 Sat by Pulse 100 100 100 Oximetry 03/09/19 03/09/19 03/09/19 07:44 07:50 07:53 Pulse Rate 80 80 82 Respiratory Rate Blood Pressure 139/72 O2 Sat by Pulse 100 100 Oximetry 03/09/19 03/09/19 03/09/19 07:54 07:59 08:05 Pulse Rate 82 82 85 Respiratory Rate Blood Pressure O2 Sat by Pulse 100 100 100 Oximetry 03/09/19 03/09/19 03/09/19 08:10 08:14 08:17 Pulse Rate 84 89 88 Respiratory Rate Blood Pressure O2 Sat by Pulse 97 98 94 Oximetry 03/09/19 03/09/19 03/09/19 08:20 08:24 08:29 Pulse Rate 86 90 77 Respiratory Rate Blood Pressure 135/79 O2 Sat by Pulse 98 97 97 Oximetry 03/09/19 03/09/19 03/09/19 08:34 08:39 08:44 Pulse Rate 80 81 79 Respiratory Rate Blood Pressure O2 Sat by Pulse 96 96 95 Oximetry 03/09/19 03/09/19 03/09/19 08:47 08:49 08:52 Pulse Rate 85 81 83 Respiratory Rate Blood Pressure O2 Sat by Pulse 94 96 93 Oximetry 03/09/19 03/09/19 03/09/19 08:55 08:58 09:00 Pulse Rate 82 81 77 Respiratory Rate Blood Pressure O2 Sat by Pulse 96 94 98 Oximetry 03/09/19 03/09/19 03/09/19 09:05 09:10 09:15 Pulse Rate 81 81 84 Respiratory Rate Blood Pressure O2 Sat by Pulse 95 97 97 Oximetry 03/09/19 03/09/19 03/09/19 09:20 09:21 09:25 Pulse Rate 88 93 H 80 Respiratory Rate Blood Pressure O2 Sat by Pulse 100 94 98 Oximetry 03/09/19 03/09/19 03/09/19 09:30 09:32 09:35 Pulse Rate 80 81 79 Respiratory Rate Blood Pressure 121/76 O2 Sat by Pulse 98 98 Oximetry 03/09/19 03/09/19 03/09/19 09:40 09:44 09:50 Pulse Rate 81 81 87 Respiratory Rate Blood Pressure O2 Sat by Pulse 97 97 98 Oximetry 03/09/19 03/09/19 03/09/19 09:55 10:00 10:01 Pulse Rate 86 83 86 Respiratory Rate Blood Pressure O2 Sat by Pulse 98 100 93 Oximetry - Exam Breasts: deferred Cardiovascular: Regular rate Lungs: Clear to auscultation Abdomen: Present: normal appearance Uterus: Present: normal FHR: category 1 (120 baseline, suresh to moderate variability) Uterine Contraction Monitor Mode: External Cervical Dilatation: 3 Cervical Effacement Percentage: 70 station: -2 Uterine Contraction Pattern: Irregular Deep Tendon Reflex Grade: Normal +2 - Labs Labs: Abnormal Labs 03/08/19 03/08/19 03/09/19 20:10 20:10 05:57 Hgb 9.6 L Hct 28.7 L MCV 78 L MCH 26 L RDW 17.1 H POC Glucose Magnesium 4.80 H AST 75 H Lactate Dehydrogenase 629 H 03/09/19 07:35 Hgb Hct MCV MCH RDW POC Glucose 109 H Magnesium AST Lactate Dehydrogenase Laboratory Results - last 24 hr 03/08/19 03/08/19 03/08/19 02:44 20:10 20:10 WBC 9.4 RBC 3.69 Hgb 9.6 L Hct 28.7 L MCV 78 L MCH 26 L MCHC 34 RDW 17.1 H Plt Count 255 POC Glucose Uric Acid 4.8 Magnesium AST 75 H ALT 21 Lactate Dehydrogenase 629 H Urine Color Yellow Urine Turbidity Clear Urine pH 7.0 Ur Specific [place] 1.011 Urine Protein <15 mg/dl Urine Glucose (UA) Neg Urine Ketones Tr Urine Blood Sm Urine Nitrite Neg Urine Bilirubin Neg Urine Urobilinogen < 2.0 Ur Leukocyte Esterase Neg Urine WBC (Auto) 3.0 Urine RBC (Auto) 9.0 U Epithel Cells (Auto) 1.0 Urine Bacteria (Auto) 1+ Urine Mucus Few Blood Type Antibody Screen 03/08/19 03/08/19 03/09/19 22:58 23:35 03:42 WBC RBC Hgb Hct MCV MCH MCHC RDW Plt Count POC Glucose 71 93 Uric Acid Magnesium AST ALT Lactate Dehydrogenase Urine Color Urine Turbidity Urine pH Ur Specific [place] Urine Protein Urine Glucose (UA) Urine Ketones Urine Blood Urine Nitrite Urine Bilirubin Urine Urobilinogen Ur Leukocyte Esterase Urine WBC (Auto) Urine RBC (Auto) U Epithel Cells (Auto) Urine Bacteria (Auto) Urine Mucus Blood Type O POSITIVE Antibody Screen Negative 03/09/19 03/09/19 05:57 07:35 WBC RBC Hgb Hct MCV MCH MCHC RDW Plt Count POC Glucose 109 H Uric Acid Magnesium 4.80 H AST ALT Lactate Dehydrogenase Urine Color Urine Turbidity Urine pH Ur Specific [place] Urine Protein Urine Glucose (UA) Urine Ketones Urine Blood Urine Nitrite Urine Bilirubin Urine Urobilinogen Ur Leukocyte Esterase Urine WBC (Auto) Urine RBC (Auto) U Epithel Cells (Auto) Urine Bacteria (Auto) Urine Mucus Blood Type Antibody Screen
[2019-03-09] MEDS ORDERED: OXYTOCIN DRIP 30 UNITS/500 ML BAG IV SCH ×2 (11:00)
[2019-03-09] MEDS ORDERED: SODIUM CHLORIDE P/F VIAL 10 ML 10 ML ONE (11:22)
[2019-03-09] MEDS ORDERED: DEXMEDETOMIDINE 200 MCG/2 ML VIAL IV ONE (11:23)
[2019-03-09] MEDS ORDERED: ePHEDrine SULFATE 50 MG/1 ML INJ IV PRN (11:39)
[2019-03-09] MEDS ORDERED: NALOXONE 2 MG/2 ML INJ IV PRN (11:39)
--- NOTE | 2019-03-09 11:41 | Anesthesia Consultation ---
Anesthesia Consult and Med Hx Date of service: 03/09/19 - Airway Anesthetic Teeth Evaluation: Good ROM Head & Neck: Adequate Mental/Hyoid Distance: Adequate Mallampati Class: Class II Intubation Access Assessment: Probably Good - Pulmonary Exam CTA: Yes - Cardiac Exam Cardiac Exam: RRR - Pre-Operative Health Status ASA Pre-Surgery Classification: ASA3 Proposed Anesthetic Plan: Epidural - Pulmonary Hx Asthma: Yes (use albuterol inhaler as needed) COPD: No Hx Pneumonia: No - Cardiovascular System Hx Hypertension: Yes (Pre-eclampsia and chronic htn) - Central Nervous System Hx Seizures: No Hx Psychiatric Problems: No - Endocrine Hx Renal Disease: No Hx End Stage Renal Disease: No Hx Hypothyroidism: No Hx Hyperthyroidism: Yes - Hematic Hx Anemia: Yes Hx Sickle Cell Disease: No - Other Systems Hx Alcohol Use: Yes (OCCASIOANLLY)
[2019-03-09] MEDS ORDERED: fentaNYL-BUPIV 2 MCG/ML-0.125% 200 MCG/100 ML BAG EPIDURAL SCH (12:00)
[2019-03-09] MEDS ORDERED: OXYTOCIN DRIP 30,000 MILLIUNITS/500 ML BAG IV ONE (15:06)
--- NOTE | 2019-03-09 16:58 | Progress Note ---
Assessment and Plan - Patient Problems (1) Encounter for induction of labor Current Visit: Yes Status: Acute Plan to address problem: SROM @ 1640, clear fluids Continue Pitocin titration as tolerated Anticipate (2) Group B Streptococcus carrier, +RV culture, currently Current Visit: Yes Status: Acute Plan to address problem: Continue GBS prophylaxis (3) Chronic hypertension with superimposed pre-eclampsia Current Visit: Yes Status: Acute Plan to address problem: Continue B/P monitoring per protocol (4) Gestational diabetes mellitus, class A1 Current Visit: Yes Status: Acute Plan to address problem: Continue blood glucose monitoring as ordered Subjective - Subjective Date of service: 03/09/19 Principal diagnosis: IOL, poorly controlled HTN, GDMA1 Interval history: See admission H & P and OB progress notes Patient reports: new complaints (Comfortable with epidural), loss of fluid, movement normal, no vaginal bleeding Objective - Vital Signs Vital Signs: Vital Signs - 12hr 03/09/19 03/09/19 03/09/19 04:54 04:59 05:00 Temperature Pulse Rate 93 H 88 87 Respiratory Rate Blood Pressure 131/76 Blood Pressure [Left] O2 Sat by Pulse 98 98 Oximetry 03/09/19 03/09/19 03/09/19 05:01 05:04 05:09 Temperature Pulse Rate 92 H 80 82 Respiratory Rate Blood Pressure Blood Pressure [Left] O2 Sat by Pulse 92 94 95 Oximetry 03/09/19 03/09/19 03/09/19 05:14 05:15 05:19 Temperature Pulse Rate 83 81 84 Respiratory Rate Blood Pressure 120/66 Blood Pressure [Left] O2 Sat by Pulse 95 94 95 Oximetry 03/09/19 03/09/19 03/09/19 05:24 05:25 05:29 Temperature Pulse Rate 85 82 81 Respiratory Rate Blood Pressure Blood Pressure [Left] O2 Sat by Pulse 96 93 96 Oximetry 03/09/19 03/09/19 03/09/19 05:32 05:34 05:39 Temperature Pulse Rate 83 85 86 Respiratory Rate Blood Pressure 119/66 Blood Pressure [Left] O2 Sat by Pulse 94 95 95 Oximetry 03/09/19 03/09/19 03/09/19 05:40 05:44 05:46 Temperature Pulse Rate 84 84 85 Respiratory Rate Blood Pressure 122/71 Blood Pressure [Left] O2 Sat by Pulse 94 95 Oximetry 03/09/19 03/09/1919 05:49 05:54 05:59 Temperature Pulse Rate 86 83 85 Respiratory Rate Blood Pressure Blood Pressure [Left] O2 Sat by Pulse 96 96 96 Oximetry 03/09/19 03/09/19 03/09/19 06:01 06:04 06:09 Temperature Pulse Rate 86 84 82 Respiratory Rate Blood Pressure Blood Pressure [Left] O2 Sat by Pulse 94 96 97 Oximetry 03/09/19 03/09/19 03/09/19 06:12 06:14 06:19 Temperature Pulse Rate 83 83 82 Respiratory Rate Blood Pressure Blood Pressure [Left] O2 Sat by Pulse 93 96 97 Oximetry 03/09/19 03/09/19 03/09/19 06:24 06:28 06:29 Temperature Pulse Rate 81 99 H 87 Respiratory Rate Blood Pressure 120/60 Blood Pressure [Left] O2 Sat by Pulse 97 93 96 Oximetry 03/09/19 03/09/19 03/09/19 06:34 06:37 06:39 Temperature Pulse Rate 84 86 Respiratory 16 Rate Blood Pressure Blood Pressure [Left] O2 Sat by Pulse 97 97 Oximetry 03/09/19 03/09/19 03/09/19 06:44 06:47 06:49 Temperature Pulse Rate 82 82 88 Respiratory Rate Blood Pressure Blood Pressure [Left] O2 Sat by Pulse 97 94 97 Oximetry 03/09/19 03/09/19 03/09/19 06:53 06:54 06:56 Temperature Pulse Rate 86 84 87 Respiratory Rate Blood Pressure 124/76 Blood Pressure [Left] O2 Sat by Pulse 97 94 Oximetry 03/09/19 03/09/19 03/09/19 07:00 07:04 07:09 Temperature Pulse Rate 83 86 84 Respiratory Rate Blood Pressure Blood Pressure [Left] O2 Sat by Pulse 97 98 97 Oximetry 03/09/19 03/09/19 03/09/19 07:15 07:19 07:23 Temperature Pulse Rate 87 85 102 H Respiratory Rate Blood Pressure 122/86 Blood Pressure [Left] O2 Sat by Pulse 98 97 Oximetry 03/09/19 03/09/19 03/09/19 07:24 07:29 07:35 Temperature Pulse Rate 94 H 80 81 Respiratory Rate Blood Pressure Blood Pressure [Left] O2 Sat by Pulse 97 100 100 Oximetry 03/09/19 03/09/19 03/09/19 07:40 07:44 07:50 Temperature Pulse Rate 80 80 80 Respiratory Rate Blood Pressure Blood Pressure [Left] O2 Sat by Pulse 100 100 100 Oximetry 03/09/19 03/09/19 03/09/19 07:53 07:54 07:59 Temperature Pulse Rate 82 82 82 Respiratory Rate Blood Pressure 139/72 Blood Pressure [Left] O2 Sat by Pulse 100 100 Oximetry 03/09/19 03/09/19 03/09/19 08:05 08:10 08:14 Temperature Pulse Rate 85 84 89 Respiratory Rate Blood Pressure Blood Pressure [Left] O2 Sat by Pulse 100 97 98 Oximetry 03/09/19 03/09/19 03/09/19 08:17 08:20 08:24 Temperature Pulse Rate 88 86 90 Respiratory Rate Blood Pressure 135/79 Blood Pressure [Left] O2 Sat by Pulse 94 98 97 Oximetry 03/09/19 03/09/19 03/09/19 08:29 08:34 08:39 Temperature Pulse Rate 77 80 81 Respiratory Rate Blood Pressure Blood Pressure [Left] O2 Sat by Pulse 97 96 96 Oximetry 03/09/19 03/09/19 03/09/19 08:44 08:47 08:49 Temperature Pulse Rate 79 85 81 Respiratory Rate Blood Pressure Blood Pressure [Left] O2 Sat by Pulse 95 94 96 Oximetry 03/09/19 03/09/19 03/09/19 08:52 08:55 08:58 Temperature Pulse Rate 83 82 81 Respiratory Rate Blood Pressure Blood Pressure [Left] O2 Sat by Pulse 93 96 94 Oximetry 03/09/19 03/09/19 03/09/19 09:00 09:05 09:10 Temperature Pulse Rate 77 81 81 Respiratory Rate Blood Pressure Blood Pressure [Left] O2 Sat by Pulse 98 95 97 Oximetry 03/09/19 03/09/19 03/09/19 09:15 09:20 09:21 Temperature Pulse Rate 84 88 93 H Respiratory Rate Blood Pressure Blood Pressure [Left] O2 Sat by Pulse 97 100 94 Oximetry 03/09/19 03/09/19 03/09/19 09:25 09:30 09:32 Temperature Pulse Rate 80 80 81 Respiratory Rate Blood Pressure 121/76 Blood Pressure [Left] O2 Sat by Pulse 98 98 Oximetry 03/09/19 03/09/19 03/09/19 09:35 09:37 09:40 Temperature 97.8 F Pulse Rate 79 86 81 Respiratory 16 Rate Blood Pressure Blood Pressure 121/76 [Left] O2 Sat by Pulse 98 98 97 Oximetry 03/09/19 03/09/19 03/09/19 09:44 09:50 09:55 Temperature Pulse Rate 81 87 86 Respiratory Rate Blood Pressure Blood Pressure [Left] O2 Sat by Pulse 97 98 98 Oximetry 03/09/19 03/09/19 03/09/19 10:00 10:01 10:05 Temperature Pulse Rate 83 86 89 Respiratory Rate Blood Pressure Blood Pressure [Left] O2 Sat by Pulse 100 93 99 Oximetry 03/09/19 03/09/19 03/09/19 10:10 10:15 10:20 Temperature Pulse Rate 85 97 H 83 Respiratory Rate Blood Pressure Blood Pressure [Left] O2 Sat by Pulse 98 97 97 Oximetry 03/09/19 03/09/19 03/09/19 10:25 10:30 10:35 Temperature Pulse Rate 82 84 86 Respiratory 16 Rate Blood Pressure 138/84 Blood Pressure 138/84 [Left] O2 Sat by Pulse 99 99 98 Oximetry 03/09/19 03/09/19 03/09/19 10:40 10:45 10:50 Temperature Pulse Rate 83 84 86 Respiratory Rate Blood Pressure Blood Pressure [Left] O2 Sat by Pulse 100 100 100 Oximetry 03/09/19 03/09/19 03/09/19 10:55 11:00 11:05 Temperature Pulse Rate 87 90 92 H Respiratory Rate Blood Pressure Blood Pressure [Left] O2 Sat by Pulse 100 100 98 Oximetry 03/09/19 03/09/19 03/09/19 11:09 11:15 11:20 Temperature Pulse Rate 89 90 86 Respiratory Rate Blood Pressure Blood Pressure [Left] O2 Sat by Pulse 100 98 98 Oximetry 03/09/19 03/09/19 03/09/19 11:25 11:30 11:31 Temperature Pulse Rate 97 H 103 H 103 H Respiratory 18 Rate Blood Pressure 167/91 Blood Pressure 167/91 [Left] O2 Sat by Pulse 97 99 Oximetry 03/09/19 03/09/19 03/09/19 11:34 11:39 11:40 Temperature Pulse Rate 100 H 96 H 99 H Respiratory Rate Blood Pressure 114/57 Blood Pressure [Left] O2 Sat by Pulse 100 100 Oximetry 03/09/19 03/09/19 03/09/19 11:44 11:45 11:49 Temperature Pulse Rate 86 89 86 Respiratory Rate Blood Pressure 85/43 85/42 Blood Pressure [Left] O2 Sat by Pulse 97 Oximetry 03/09/19 03/09/19 03/09/19 11:50 11:54 11:55 Temperature Pulse Rate 81 78 78 Respiratory Rate Blood Pressure 86/43 Blood Pressure [Left] O2 Sat by Pulse 97 97 Oximetry 03/09/19 03/09/19 03/09/19 11:59 12:00 12:04 Temperature Pulse Rate 78 78 84 Respiratory Rate Blood Pressure 83/40 85/41 Blood Pressure [Left] O2 Sat by Pulse 98 Oximetry 03/09/19 03/09/19 03/09/19 12:05 12:10 12:15 Temperature Pulse Rate 83 83 79 Respiratory Rate Blood Pressure Blood Pressure [Left] O2 Sat by Pulse 98 98 98 Oximetry 03/09/19 03/09/19 03/09/19 12:20 12:35 12:46 Temperature Pulse Rate 80 79 86 Respiratory Rate Blood Pressure 85/46 94/55 Blood Pressure [Left] O2 Sat by Pulse 94 Oximetry 03/09/19 03/09/19 03/09/19 12:50 12:51 12:56 Temperature Pulse Rate 83 77 74 Respiratory Rate Blood Pressure 105/59 Blood Pressure [Left] O2 Sat by Pulse 96 95 Oximetry 03/09/19 03/09/19 03/09/19 13:01 13:05 13:06 Temperature Pulse Rate 91 H 83 73 Respiratory Rate Blood Pressure 105/57 Blood Pressure [Left] O2 Sat by Pulse 96 95 Oximetry 03/09/19 03/09/19 03/09/19 13:07 13:11 13:16 Temperature Pulse Rate 72 86 76 Respiratory Rate Blood Pressure Blood Pressure [Left] O2 Sat by Pulse 94 95 95 Oximetry 03/09/19 03/09/19 03/09/19 13:20 13:21 13:25 Temperature Pulse Rate 76 74 75 Respiratory Rate Blood Pressure 106/55 Blood Pressure [Left] O2 Sat by Pulse 96 94 Oximetry 03/09/19 03/09/19 03/09/19 13:26 13:31 13:35 Temperature Pulse Rate 77 74 78 Respiratory Rate Blood Pressure 103/58 Blood Pressure [Left] O2 Sat by Pulse 95 96 Oximetry 03/09/19 03/09/19 03/09/19 13:36 13:41 13:46 Temperature Pulse Rate 77 80 74 Respiratory Rate Blood Pressure Blood Pressure [Left] O2 Sat by Pulse 94 94 95 Oximetry 03/09/19 03/09/19 03/09/19 13:50 13:51 13:56 Temperature Pulse Rate 85 77 87 Respiratory Rate Blood Pressure 106/58 Blood Pressure [Left] O2 Sat by Pulse 94 95 97 Oximetry 03/09/19 03/09/19 03/09/19 14:00 14:05 14:08 Temperature Pulse Rate 79 79 79 Respiratory Rate Blood Pressure 107/55 Blood Pressure [Left] O2 Sat by Pulse 96 96 94 Oximetry 03/09/19 03/09/19 03/09/19 14:11 14:14 14:17 Temperature Pulse Rate 77 80 84 Respiratory Rate Blood Pressure Blood Pressure [Left] O2 Sat by Pulse 95 94 97 Oximetry 03/09/19 03/09/19 03/09/19 14:22 14:27 14:31 Temperature Pulse Rate 77 79 76 Respiratory Rate Blood Pressure 121/64 Blood Pressure [Left] O2 Sat by Pulse 97 97 99 Oximetry 03/09/19 03/09/19 03/09/19 14:35 14:37 14:42 Temperature Pulse Rate 73 74 74 Respiratory Rate Blood Pressure 116/60 Blood Pressure [Left] O2 Sat by Pulse 98 100 Oximetry 03/09/19 03/09/19 03/09/19 14:47 14:50 14:51 Temperature Pulse Rate 81 72 76 Respiratory Rate Blood Pressure 104/56 Blood Pressure [Left] O2 Sat by Pulse 99 98 Oximetry 03/09/19 03/09/19 03/09/19 14:57 15:02 15:05 Temperature Pulse Rate 77 75 78 Respiratory Rate Blood Pressure 107/52 Blood Pressure [Left] O2 Sat by Pulse 97 98 Oximetry 03/09/19 03/09/19 03/09/19 15:07 15:12 15:17 Temperature Pulse Rate 80 84 84 Respiratory Rate Blood Pressure Blood Pressure [Left] O2 Sat by Pulse 100 98 97 Oximetry 03/09/19 03/09/19 03/09/19 15:21 15:22 15:27 Temperature Pulse Rate 82 77 84 Respiratory Rate Blood Pressure 128/68 Blood Pressure [Left] O2 Sat by Pulse 97 97 Oximetry 03/09/19 03/09/19 03/09/19 15:32 15:35 15:37 Temperature Pulse Rate 83 84 86 Respiratory Rate Blood Pressure 133/72 Blood Pressure [Left] O2 Sat by Pulse 98 97 Oximetry 03/09/19 03/09/19 03/09/19 15:42 15:47 15:51 Temperature Pulse Rate 87 87 77 Respiratory Rate Blood Pressure 121/63 Blood Pressure [Left] O2 Sat by Pulse 97 97 Oximetry 03/09/19 03/09/19 03/09/19 15:52 15:57 16:02 Temperature Pulse Rate 79 78 78 Respiratory Rate Blood Pressure Blood Pressure [Left] O2 Sat by Pulse 97 97 96 Oximetry 03/09/19 03/09/19 03/09/19 16:05 16:07 16:12 Temperature Pulse Rate 75 78 81 Respiratory Rate Blood Pressure 112/55 Blood Pressure [Left] O2 Sat by Pulse 95 96 Oximetry 03/09/19 03/09/19 03/09/19 16:17 16:20 16:22 Temperature Pulse Rate 80 78 81 Respiratory Rate Blood Pressure 111/55 Blood Pressure [Left] O2 Sat by Pulse 96 96 Oximetry 03/09/19 03/09/19 03/09/19 16:27 16:32 16:35 Temperature Pulse Rate 82 78 83 Respiratory Rate Blood Pressure 101/55 Blood Pressure [Left] O2 Sat by Pulse 95 97 Oximetry 03/09/19 03/09/19 03/09/19 16:37 16:42 16:47 Temperature Pulse Rate 79 79 78 Respiratory Rate Blood Pressure Blood Pressure [Left] O2 Sat by Pulse 97 96 99 Oximetry 03/09/19 03/09/19 16:50 16:52 Temperature Pulse Rate 73 80 Respiratory Rate Blood Pressure 110/57 Blood Pressure [Left] O2 Sat by Pulse 99 Oximetry - Exam Breasts: deferred Cardiovascular: Regular rate Lungs: Normal air movement FHR: category 1 Uterine Contraction Monitor Mode: External Cervical Dilatation: 3 (Pitocin @ 12mu/min) Cervical Effacement Percentage: 90 station: -1 Uterine Contraction Frequency (min): 3-5 Uterine Contraction Pattern: Irregular Uterine Tone Measurement Phase: Resting Uterine Contraction Intensity: Moderate Extremities: normal Deep Tendon Reflex Grade: Normal +2 - Labs Labs: Abnormal Labs 03/08/19 03/08/19 03/09/19 20:10 20:10 05:57 Hgb 9.6 L Hct 28.7 L MCV 78 L MCH 26 L RDW 17.1 H POC Glucose Magnesium 4.80 H AST 75 H Lactate Dehydrogenase 629 H 03/09/19 03/09/19 03/09/19 07:35 12:17 15:02 Hgb Hct MCV MCH RDW POC Glucose 109 H 107 H Magnesium 5.60 H AST Lactate Dehydrogenase Laboratory Results - last 24 hr 03/08/19 03/08/19 03/08/19 02:44 20:10 20:10 WBC 9.4 RBC 3.69 Hgb 9.6 L Hct 28.7 L MCV 78 L MCH 26 L MCHC 34 RDW 17.1 H Plt Count 255 POC Glucose Uric Acid 4.8 Magnesium AST 75 H ALT 21 Lactate Dehydrogenase 629 H Urine Color Yellow Urine Turbidity Clear Urine pH 7.0 Ur Specific [place] 1.011 Urine Protein <15 mg/dl Urine Glucose (UA) Neg Urine Ketones Tr Urine Blood Sm Urine Nitrite Neg Urine Bilirubin Neg Urine Urobilinogen < 2.0 Ur Leukocyte Esterase Neg Urine WBC (Auto) 3.0 Urine RBC (Auto) 9.0 U Epithel Cells (Auto) 1.0 Urine Bacteria (Auto) 1+ Urine Mucus Few Blood Type Antibody Screen 03/08/19 03/08/19 03/09/19 22:58 23:35 03:42 WBC RBC Hgb Hct MCV MCH MCHC RDW Plt Count POC Glucose 71 93 Uric Acid Magnesium AST ALT Lactate Dehydrogenase Urine Color Urine Turbidity Urine pH Ur Specific [place] Urine Protein Urine Glucose (UA) Urine Ketones Urine Blood Urine Nitrite Urine Bilirubin Urine Urobilinogen Ur Leukocyte Esterase Urine WBC (Auto) Urine RBC (Auto) U Epithel Cells (Auto) Urine Bacteria (Auto) Urine Mucus Blood Type O POSITIVE Antibody Screen Negative 03/09/19 03/09/19 03/09/19 05:57 07:35 12:17 WBC RBC Hgb Hct MCV MCH MCHC RDW Plt Count POC Glucose 109 H Uric Acid Magnesium 4.80 H 5.60 H AST ALT Lactate Dehydrogenase Urine Color Urine Turbidity Urine pH Ur Specific [place] Urine Protein Urine Glucose (UA) Urine Ketones Urine Blood Urine Nitrite Urine Bilirubin Urine Urobilinogen Ur Leukocyte Esterase Urine WBC (Auto) Urine RBC (Auto) U Epithel Cells (Auto) Urine Bacteria (Auto) Urine Mucus Blood Type Antibody Screen 03/09/19 15:02 WBC RBC Hgb Hct MCV MCH MCHC RDW Plt Count POC Glucose 107 H Uric Acid Magnesium AST ALT Lactate Dehydrogenase Urine Color Urine Turbidity Urine pH Ur Specific [place] Urine Protein Urine Glucose (UA) Urine Ketones Urine Blood Urine Nitrite Urine Bilirubin Urine Urobilinogen Ur Leukocyte Esterase Urine WBC (Auto) Urine RBC (Auto) U Epithel Cells (Auto) Urine Bacteria (Auto) Urine Mucus Blood Type Antibody Screen
[2019-03-09] MEDS ORDERED: miSOPROStol 200 MCG TAB ONE (18:05)
[2019-03-09] MEDS ORDERED: CARBOPROST TROMETHAMINE 250 MCG/1 ML INJ IM ONE ×2 (18:06→18:59)
[2019-03-09] MEDS ORDERED: miSOPROStol 200 MCG TAB PR ONE (18:57)
[2019-03-09] MEDS ORDERED: diphenhydrAMINE 25 MG CAP PO PRN (19:11)
[2019-03-09] MEDS ORDERED: PROMETHAZINE 25 MG TAB PO PRN (19:11)
[2019-03-09] MEDS ORDERED: ONDANSETRON 4 MG/2 ML INJ IV PRN (19:11)
[2019-03-09] MEDS ORDERED: MAGNESIUM HYDROXIDE (MOM) ORAL LIQD UDC PO PRN (19:11)
[2019-03-09] MEDS ORDERED: PROMETHAZINE 25 MG RECT SUPP PR PRN (19:11)
[2019-03-09] MEDS ORDERED: LANOLIN/ZINC/DIMETHICONE (LANSINOH) 7 GM TP PRN (19:11)
[2019-03-09] MEDS ORDERED: WITCH HAZEL/ GLYCERIN PAD TP PRN (19:11)
--- NOTE | 2019-03-09 19:22 | Procedure Note ---
OB Delivery Note - Delivery Date of Delivery: 03/09/19 (1848) Surgeon: GLENN ZAYAS (CNM) Estimated blood loss: 300cc - Vaginal Delivery presentation: vertex Delivery position: OA (LAURA) Intrapartum events: labor-<37 weeks, preeclampsia Delivery induction: cervidil Delivery augmentation: pitocin Delivery monitor: external FHT, external uterine Route of delivery: Delivery placenta: spontaneous (190, laura) Delivery cord: 3 umbilical vessels Episiotomy: none Delivery laceration: none Anesthesia: epidural Delivery comments: of viable, quiet, alert male infant, placed directly to maternal abdomen. Dried and manually stimulated, began to cry. Cord double clamped and cut by FOB after cessation of pulsation. Placenta spontaneously delivered, sanchez and disposed per hospital policy. Uterus firm @ U, hemostasis maintained. Perineum intact. Mother and baby safe, stable and bonding well. - A at 1 minute: 7 at 5 minutes: 8 Gender: Male (Weight: 5 lbs 15.5 ozs, 18 inches)
[2019-03-09] MEDS: oxyCODONE /ACETAMINOPHEN 5-325MG TAB PO PRN (22:01)
[2019-03-10] MEDS: oxyCODONE /ACETAMINOPHEN 5-325MG TAB PO PRN (05:49)
[2019-03-10 06:30] LABS: Hematocrit 20.5 % (30.3-42.9); Hemoglobin 6.8 gm/dl (10.1-14.3)
[2019-03-10] MEDS ORDERED: IRON DEXTRAN COMPLEX 100 MG/2 ML INJ IM ONE (07:40)
[2019-03-10] MEDS: IBUPROFEN 600 MG TAB PO SCH ×3 (08:24→20:29)
[2019-03-10] MEDS: PRENATAL VIT27-FE FUMARATE-FOLIC ACID VIT TAB PO SCH (09:54)
[2019-03-10] MEDS: FERROUS SULFATE 325 MG TAB PO SCH (09:54)
--- NOTE | 2019-03-10 10:28 | Progress Note ---
Assessment and Plan A: PP Day #1 CHTN/Preeclampsia GDM A1 Asymptomatic Anemia P: Follow Routine Orders D/C MagSO4 FeSO4 PO as Ordered Infed 100mg IM x 1 dose Patient encouraged to not to eat sugary snacks at bedside Subjective - Subjective Date of service: 03/10/19 Principal diagnosis: IOL, poorly controlled HTN, GDMA1 Patient reports: appetite normal, voiding normally ([place] in place; adquate ur ine output), pain well controlled, other (185. Patient just finished breaskfast, and has several candy bars, crackers, snakes and 32oz PowerAids at her bedside) : doing well, bottle feeding Objective - Vital Signs Latest vital signs: Vital Signs Temp Pulse Resp BP BP Pulse Ox 03/10/19 10:20 68 100 03/10/19 10:15 67 100 03/10/19 10:10 69 100 03/10/19 10:05 72 99 03/10/19 10:00 67 100 03/10/19 09:55 72 98 03/10/19 09:53 70 102/52 03/10/19 09:50 67 100 03/10/19 09:45 67 99 03/10/19 09:40 73 99 03/10/19 09:36 70 102/52 03/10/19 09:35 69 98 03/10/19 09:30 69 99 03/10/19 09:25 69 100 03/10/19 09:20 67 100 03/10/19 09:15 71 99 03/10/19 09:10 67 99 03/10/19 09:05 73 99 03/10/19 09:00 78 98 03/10/19 08:55 70 100 03/10/19 08:50 76 99 03/10/19 08:45 80 100 03/10/19 08:40 74 99 03/10/19 08:36 74 106/60 03/10/19 08:35 71 100 03/10/19 08:30 77 99 03/10/19 08:25 82 93 03/10/19 08:20 71 100 03/10/19 08:15 68 100 03/10/19 08:10 71 100 03/10/19 08:07 82 94 03/10/19 08:05 81 100 03/10/19 08:00 75 100 12/19/19 07:55 72 99 12/19/19 07:50 80 99 12/19/19 07:45 74 99 12/19/19 07:40 65 94/52 99 12/19/19 07:39 98.1 F 69 18 94/52 99 12/19/19 07:36 70 93/51 12/19/19 07:35 70 98 12/19/19 07:30 70 97 12/19/19 07:25 73 100 12/19/19 07:22 75 94 12/19/19 07:20 66 100 12/19/19 07:16 74 94 12/19/19 07:15 69 97 12/19/19 07:10 69 99 12/19/19 07:05 74 98 12/19/19 07:00 69 97 /19/19 06:55 70 97 12/19/19 06:50 70 97 12/19/19 06:45 69 98 12/19/19 06:40 69 96 12/19/19 06:36 70 92/54 12/19/19 06:35 71 98 12/19/19 06:30 69 98 12/19/19 06:25 69 98 12/19/19 06:20 70 98 12/19/19 06:15 68 99 12/19/19 06:10 75 98 12/19/19 06:05 68 99 12/19/19 06:00 68 99 12/19/19 05:55 65 100 12/19/19 05:50 68 100 12/19/19 05:45 84 100 12/19/19 05:40 75 98 12/19/19 05:37 82 93 12/19/19 05:36 75 91/54 12/19/19 05:35 73 97 12/19/19 05:30 68 98 12/19/19 05:25 69 98 12/19/19 05:20 70 98 12/19/19 05:15 69 98 12/19/19 05:10 66 99 12/19/19 05:05 69 97 12/19/19 05:00 70 98 12/19/19 04:55 68 97 12/19/19 04:50 69 97 12/19/19 04:45 68 97 12/19/19 04:40 67 98 12/19/19 04:36 68 91/54 12/19/19 04:35 70 97 12/19/19 04:30 69 98 03/10/19 04:25 70 97 03/10/19 04:20 69 97 03/10/19 04:15 69 97 03/10/19 04:10 66 97 03/10/19 04:05 64 98 03/10/19 04:00 66 98 03/10/19 03:55 70 98 03/10/19 03:50 67 98 03/10/19 03:45 74 97 03/10/19 03:40 69 97 03/10/19 03:36 74 98/56 03/10/19 03:35 70 97 03/10/19 03:32 98.8 F 63 03/10/19 03:30 67 100 03/10/19 03:29 89 03/10/19 03:19 70 98 03/10/19 03:14 71 97 03/10/19 03:09 71 97 03/10/19 03:04 71 97 03/10/19 02:59 74 98 03/10/19 02:54 71 99 03/10/19 02:49 72 98 03/10/19 02:44 85 97 03/10/19 02:39 72 98 03/10/19 02:36 71 100/57 03/10/19 02:34 76 97 03/10/19 02:29 73 98 03/10/19 02:24 72 97 03/10/19 02:19 74 96 03/10/19 02:14 76 97 03/10/19 02:10 73 94 03/10/19 02:09 74 97 03/10/19 02:04 73 97 03/10/19 01:59 74 97 03/10/19 01:54 75 97 03/10/19 01:49 74 97 03/10/19 01:44 73 97 03/10/19 01:39 75 97 03/10/19 01:36 72 102/55 03/10/19 01:34 76 97 03/10/19 01:29 75 97 03/10/19 01:24 72 98 03/10/19 01:19 75 97 03/10/19 01:14 85 98 03/10/19 01:09 74 98 03/10/19 01:04 73 98 03/10/19 00:59 73 98 03/10/19 00:54 72 98 12/19/19 00:49 72 99 19/19 00:44 76 96 19/19 00:39 77 98 19/19 00:36 76 119/69 19/19 00:34 77 97 03/10/19 00:29 73 97 03/10/19 00:25 74 93 03/10/19 00:24 77 99 03/10/19 00:19 75 98 03/10/19 00:14 72 97 19/19 00:09 73 98 03/10/19 00:04 73 98 18/19 23:59 73 98 18/19 23:54 76 99 18/19 23:49 71 98 18/19 23:44 77 99 18/19 23:39 80 99 18/19 23:36 76 137/78 1218/19 23:34 78 98 18/19 23:29 78 99 18/19 23:24 79 100 18/19 23:19 84 93 18/19 22:36 80 131/80 97 1218/19 22:31 83 98 18/19 22:26 81 98 /18/19 22:21 80 96 18/19 22:16 80 96 18/19 22:13 88 94 18/19 22:11 79 99 18/19 22:06 77 97 18/19 22:01 79 98 18/19 21:56 70 98 18/19 21:51 89 97 1218/19 21:46 78 97 18/19 21:41 80 98 1218/19 21:36 82 135/78 97 12/18/19 21:34 87 94 12/18/19 21:31 85 99 12/18/19 21:26 82 97 12/18/19 21:21 76 96 12/18/19 21:16 75 98 12/18/19 21:12 74 89 12/18/19 21:11 74 98 12/18/19 21:06 73 98 12/18/19 21:03 85 92 12/18/19 21:01 89 97 12/18/19 20:56 82 96 12/18/19 20:51 81 97 12/18/19 20:46 86 98 12/18/19 20:41 82 98 12/18/19 20:36 78 132/74 96 12/18/19 20:35 72 124/74 12/18/19 20:33 75 131/73 12/18/19 20:31 75 99 12/18/19 20:26 73 97 12/18/19 20:21 70 99 12/18/19 20:20 75 139/73 12/18/19 20:16 73 100 12/18/19 20:11 71 99 12/18/19 20:06 73 97 12/18/19 20:05 70 129/66 12/18/19 20:04 74 92 12/18/19 20:01 74 99 12/18/19 19:56 69 96 12/18/19 19:54 73 92 12/18/19 19:51 69 94 12/18/19 19:50 72 118/59 12/18/19 19:48 66 93 12/18/19 19:46 68 100 12/18/19 19:41 74 100 12/18/19 19:36 72 97 12/18/19 19:35 71 115/58 12/18/19 19:31 67 97 12/18/19 19:20 73 111/58 12/18/19 19:09 68 18 96/55 96/55 98 12/18/19 19:05 70 16 84/43 84/43 98 12/18/19 19:02 97.8 F 66 16 82/47 82/47 97 12/18/19 18:50 73 90/45 12/18/19 18:35 69 97/54 12/18/19 18:20 73 95/50 12/18/19 18:07 68 100 12/18/19 18:06 63 81/43 12/18/19 18:05 71 89/44 12/18/19 18:02 69 99 12/18/19 17:59 70 94 12/18/19 17:57 67 97 12/18/19 17:52 66 97 12/18/19 17:50 72 89/52 12/18/19 17:47 66 96 12/18/19 17:42 66 95 12/18/19 17:38 68 92 12/18/19 17:37 68 88 12/18/19 17:35 71 89/47 12/18/19 17:32 68 90 12/18/19 17:31 71 92 12/18/19 17:27 71 91 12/18/19 17:24 80 90 12/18/19 17:22 73 100 12/18/19 17:20 72 104/51 12/18/19 17:17 68 98 12/18/19 17:12 75 94 12/18/19 17:11 76 94 12/18/19 17:07 74 97 12/18/19 17:05 78 100/51 12/18/19 17:02 76 97 12/18/19 16:57 76 98 12/18/19 16:52 80 99 12/18/19 16:50 98.8 F 73 18 110/57 110/57 99 12/18/19 16:47 78 99 12/18/19 16:42 79 96 12/18/19 16:37 79 97 12/18/19 16:35 83 101/55 12/18/19 16:32 78 97 12/18/19 16:27 82 95 12/18/19 16:22 81 96 12/18/19 16:20 78 111/55 12/18/19 16:17 80 96 12/18/19 16:12 81 96 12/18/19 16:07 78 95 12/18/19 16:05 75 112/55 12/18/19 16:02 78 96 12/18/19 15:57 78 97 12/18/19 15:52 79 97 12/18/19 15:51 77 121/63 12/18/19 15:47 87 97 12/18/19 15:42 87 97 12/18/19 15:37 86 97 12/18/19 15:35 84 133/72 12/18/19 15:32 83 98 12/18/19 15:30 82 16 128/68 97 12/18/19 15:27 84 97 12/18/19 15:22 77 97 12/18/19 15:21 82 128/68 12/18/19 15:17 84 97 12/18/19 15:12 84 98 12/18/19 15:07 80 100 12/18/19 15:05 78 107/52 12/18/19 15:02 75 98 12/18/19 14:57 77 97 12/18/19 14:51 76 98 12/18/19 14:50 72 104/56 12/18/19 14:47 81 99 12/18/19 14:42 74 100 12/18/19 14:37 74 98 12/18/19 14:35 73 116/60 12/18/19 14:31 76 99 12/18/19 14:30 97.8 F 76 20 116/60 98 12/18/19 14:27 79 97 12/18/19 14:22 77 121/64 97 12/18/19 14:17 84 97 12/18/19 14:14 80 94 12/18/19 14:11 77 95 12/18/19 14:08 79 94 12/18/19 14:05 79 107/55 96 12/18/19 14:00 79 96 12/18/19 13:56 87 97 12/18/19 13:51 77 95 12/18/19 13:50 85 106/58 94 12/18/19 13:46 74 95 12/18/19 13:41 80 94 12/18/19 13:36 77 94 12/18/19 13:35 78 103/58 12/18/19 13:31 74 96 12/18/19 13:30 78 16 103/58 95 12/18/19 13:26 77 95 12/18/19 13:25 75 94 12/18/19 13:21 74 96 12/18/19 13:20 76 106/55 12/18/19 13:16 76 95 12/18/19 13:11 86 95 12/18/19 13:07 72 94 12/18/19 13:06 73 95 12/18/19 13:05 83 105/57 12/18/19 13:01 91 H 96 12/18/19 12:56 74 95 12/18/19 12:51 77 96 12/18/19 12:50 83 105/59 12/18/19 12:46 86 94 12/18/19 12:35 79 94/55 12/18/19 12:30 85 18 85/46 99 12/18/19 12:20 80 85/46 12/18/19 12:15 79 98 12/18/19 12:10 83 98 12/18/19 12:05 83 98 12/18/19 12:04 84 85/41 12/18/ 12:00 78 98 03/09/19 11:59 78 83/40 03/09/19 11:55 78 97 03/09/19 11:54 78 86/43 03/09/19 11:50 81 97 03/09/19 11:49 86 85/42 03/09/19 11:45 89 97 03/09/19 11:44 86 85/43 03/09/19 11:40 99 H 100 03/09/19 11:39 96 H 114/57 03/09/19 11:34 100 H 100 03/09/19 11:31 103 H 167/91 03/09/19 11:30 103 H 18 167/91 99 03/09/19 11:25 97 H 97 03/09/19 11:20 86 98 03/09/19 11:15 90 98 03/09/19 11:09 89 100 03/09/19 11:05 92 H 98 03/09/19 11:00 90 100 03/09/19 10:55 87 100 03/09/19 10:50 86 100 03/09/19 10:45 84 100 03/09/19 10:40 83 100 03/09/19 10:35 86 98 03/09/19 10:30 84 16 138/84 138/84 99 03/09/19 10:25 82 99 Intake and Output 03/09/19 03/10/19 03/10/19 22:59 06:59 14:59 Intake Total 261.900 125 480 Output Total 1409 500 500 Balance -1147.100 -375 -20 Intake: IV 261.900 125 MAGNESIUM SULFATE 40GM/ 50 25 1000ML 40 gm In 1,000 ml @ 1 GM/HR 25 mls/hr IV DIRECT GIANFRANCO Rx#:[id number] PITOCin/NS 20 UNIT/1000ML 200 100 DRIP 20 units In 1,000 ml @ 125 mls/hr IV DIRECT GIANFRANCO Rx#:[id number] PITOCin/NS 30 UNIT/500ML 11.900 30 units In 500 ml @ 2 mls/hr IV TITR GIANFRANCO Rx#: [id number] Oral 480 Output: Urine 700 500 500 Indwelling Catheter 700 500 500 Other 709 Other: Total, Intake Amount 360 Total, Output Amount 138 200 100 - Exam Breasts: Present: normal Cardiovascular: Present: Regular rate Lungs: Present: Clear to auscultation, Normal air movement Abdomen: Present: normal appearance, soft, normal bowel sounds Uterus: Present: normal, firm, fundal height at umbilicus Extremities: Present: normal - Labs Labs: Abnormal lab results 03/09/19 03/09/19 03/09/19 Range/Units 12:17 15:02 19:24 Hgb (10.1-14.3) gm/dl Hct (30.3-42.9) % POC Glucose 107 H (70-105) Magnesium 5.60 H 6.60 H (1.7-2.3) mg/dL 03/10/19 03/10/19 03/10/19 Range/Units 00:33 06:07 06:07 Hgb 6.8 L (10.1-14.3) gm/dl Hct 20.5 L D (30.3-42.9) % POC Glucose (70-105) Magnesium 5.10 H 5.20 H (1.7-2.3) mg/dL 03/10/19 Range/Units 10:08 Hgb (10.1-14.3) gm/dl Hct (30.3-42.9) % POC Glucose 185 H (70-105) Magnesium (1.7-2.3) mg/dL
[2019-03-11] MEDS: IBUPROFEN 600 MG TAB PO SCH ×3 (02:31→20:38)
[2019-03-11 06:30] LABS: Hemoglobin 6.1 gm/dl (10.1-14.3)
[2019-03-11 06:38] LABS: Hematocrit 18.2 % (30.3-42.9)
[2019-03-11] MEDS ORDERED: SODIUM CHLORIDE 0.9% 500 ML 500 ML IV NR ×2 (07:30→11:00)
[2019-03-11] MEDS: oxyCODONE /ACETAMINOPHEN 5-325MG TAB PO PRN ×2 (07:38→22:45)
[2019-03-11] MEDS: PRENATAL VIT27-FE FUMARATE-FOLIC ACID VIT TAB PO SCH (09:41)
[2019-03-11] MEDS: FERROUS SULFATE 325 MG TAB PO SCH ×3 (09:41→20:38)
--- NOTE | 2019-03-11 11:43 | Progress Note ---
Assessment and Plan - Patient Problems (1) Single live Current Visit: Yes Status: Acute (2) Status post normal vaginal delivery Current Visit: Yes Status: Acute Plan to address problem: Continue current management Anticipate discharge in 24 hours (3) Anemia due to blood loss, acute Current Visit: Yes Status: Acute Plan to address problem: Currently asymptomatic No active bleeding present Vital signs stable. HR 78 s/p Infed 100mg IM x1 3U PRBC transfusion held since patient is asymptomatic and not actively bleeding Repeat H&H 12 hours after last Ferrous sulfate 325mg PO qd increased to 325mg PO TID (4) Chronic hypertension with superimposed pre-eclampsia Current Visit: Yes Status: Acute Plan to address problem: BPs stable. Not currently on any meds Completed Magnesium sulfate therapy (5) Gestational diabetes mellitus, class A1 Current Visit: Yes Status: Acute Plan to address problem: Last Blood glucose: 89 Continue blood glucose checks per protocol Regular diet discontinued. ADA diet initiated. (6) Advanced maternal age in multigravida Current Visit: No Status: Acute Qualifiers: Trimester: third trimester Qualified Code(s): O09.523 - Supervision of elderly multigravida, third trimester Subjective - Subjective Date of service: 03/11/19 Principal diagnosis: PPD #2; s/p ; Pre-eclampsia; Anemia Interval history: See H&P, OB Progress Notes, OB Delivery Procedure Note and PP/LINEN AIDE Progress Note Patient reports: appetite normal, voiding normally, pain well controlled, ambulating normally, other (headache. Denies visual disturbances or RUQ pain), no dizzy ambulation, no nauseated Portia: doing well Objective - Vital Signs Latest vital signs: Vital Signs Temp Pulse Resp BP BP Pulse Ox 03/11/19 07:57 98.3 F 78 18 123/73 03/11/19 01:12 98.0 F 72 20 107/71 99 03/10/19 16:25 97.9 F 69 18 103/62 99 03/10/19 14:50 98.3 F 67 18 122/72 99 03/10/19 14:20 78 142/82 03/10/19 13:55 71 99 03/10/19 13:50 74 99 03/10/19 13:45 78 99 03/10/19 13:40 67 99 03/10/19 13:35 68 100 03/10/19 13:30 63 100 03/10/19 13:25 67 100 03/10/19 13:20 68 99 03/10/19 13:15 69 100 03/10/19 13:10 63 100 03/10/19 13:05 68 100 03/10/19 13:00 71 100 03/10/19 12:55 68 100 03/10/19 12:50 66 100 03/10/19 12:45 77 100 03/10/19 12:40 69 100 03/10/19 12:35 67 100 03/10/19 12:30 68 100 03/10/19 12:25 74 100 03/10/19 12:20 71 100 03/10/19 12:15 67 100 03/10/19 12:10 69 100 03/10/19 12:05 65 99 03/10/19 12:04 98.4 F 67 18 105/57 99 03/10/19 12:03 64 105/57 03/10/19 12:00 72 100 03/10/19 11:55 68 100 03/10/19 11:50 73 98 03/10/19 11:45 67 99 Intake and Output 03/10/19 03/11/19 03/11/19 23:59 07:59 15:59 Intake Total 240 960 Balance 240 960 Intake: Oral 240 960 Other: Total, Intake Amount 240 480 # Voids Void 1 1 - Exam Cardiovascular: Present: Regular rate Lungs: Present: Clear to auscultation Abdomen: Present: normal appearance, soft Vulva: both: normal Uterus: Present: normal, firm, fundal height below umbilicus Comments: small lochia - Labs Labs: Abnormal lab results 03/08/19 03/10/19 03/10/19 Range/Units 23:35 14:08 18:13 Hgb (10.1-14.3) gm/dl Hct (30.3-42.9) % POC Glucose 141 H 150 H (70-105) Crossmatch See Detail 03/10/19 03/11/19 Range/Units 22:05 05:18 Hgb 6.1 L (10.1-14.3) gm/dl Hct 18.2 L* (30.3-42.9) % POC Glucose 135 H (70-105) Crossmatch
[2019-03-11 21:11] LABS: Hematocrit 17.9 % (30.3-42.9)
[2019-03-11] MEDS ORDERED: SODIUM CHLORIDE 0.9% 500 ML 500 ML IV ONE (22:17)
--- NOTE | 2019-03-11 22:25 | Event Note ---
Date: 03/11/19 Patient with symptomatic anemia; patient agrees to take blood transfusion. Orders put in for PRBCs.
[2019-03-12] MEDS ORDERED: SODIUM CHLORIDE 0.9% 1000 ML 1,000 ML ONE (02:13)
[2019-03-12] MEDS: FERROUS SULFATE 325 MG TAB PO SCH ×2 (10:08→15:30)
[2019-03-12] MEDS: PRENATAL VIT27-FE FUMARATE-FOLIC ACID VIT TAB PO SCH (10:08)
[2019-03-12] MEDS: IBUPROFEN 600 MG TAB PO SCH (11:46)
--- NOTE | 2019-03-12 12:44 | Progress Note ---
Assessment and Plan - Patient Problems (1) Anemia due to blood loss, acute Current Visit: Yes Status: Acute Plan to address problem: Will repeat Hgn is stable, pt opts to go home with iron. RTO 6 weeks. (2) Status post normal vaginal delivery Current Visit: Yes Status: Acute Subjective - Subjective Principal diagnosis: PPD #2; s/p ; Pre-eclampsia; Anemia Patient reports: no vaginal bleeding (Pt doing well s/p 1 unit PRBCs. PT declined the second unit. No anemic sxs. No heavy VB. STOVALL that she had is now resolved with Motrin. PT can ambulate comfortably. No CP/SOB) Objective - Vital Signs Vital Signs: Vital Signs - 12hr 03/12/19 03/12/19 03/12/19 01:45 02:48 03:02 Temperature 97.5 F L 98.5 F 98.5 F Pulse Rate 70 70 65 Respiratory 14 18 18 Rate Blood Pressure 103/53 124/76 114/72 Blood Pressure [Left] O2 Sat by Pulse 99 99 99 Oximetry 03/12/19 03/12/19 03/12/19 03:03 03:18 03:30 Temperature 98.5 F 98.5 F 98.2 F Pulse Rate 65 65 66 Respiratory 18 18 18 Rate Blood Pressure 121/75 121/75 121/78 Blood Pressure [Left] O2 Sat by Pulse 99 99 97 Oximetry 03/12/19 03/12/19 03/12/19 04:00 04:30 05:00 Temperature 98.2 F 98.2 F 98.4 F Pulse Rate 62 61 69 Respiratory 19 18 18 Rate Blood Pressure 129/76 131/82 140/87 Blood Pressure [Left] O2 Sat by Pulse 97 100 100 Oximetry 03/12/19 03/12/19 05:30 10:21 Temperature 98.6 F 98 F Pulse Rate 62 90 Respiratory 18 20 Rate Blood Pressure 140/82 Blood Pressure 144/83 [Left] O2 Sat by Pulse 100 Oximetry - Exam Abdomen: Present: normal appearance, soft. Absent: tenderness Uterus: Present: normal, firm - Labs Labs: Abnormal Labs 03/08/19 03/08/19 03/08/19 20:10 20:10 23:35 Hgb 9.6 L Hct 28.7 L MCV 78 L MCH 26 L RDW 17.1 H POC Glucose Magnesium AST 75 H Lactate Dehydrogenase 629 H Crossmatch See Detail 03/09/19 03/09/19 03/09/19 05:57 07:35 12:17 Hgb Hct MCV MCH RDW POC Glucose 109 H Magnesium 4.80 H 5.60 H AST Lactate Dehydrogenase Crossmatch 03/09/19 03/09/19 03/10/19 15:02 19:24 00:33 Hgb Hct MCV MCH RDW POC Glucose 107 H Magnesium 6.60 H 5.10 H AST Lactate Dehydrogenase Crossmatch 03/10/19 03/10/19 03/10/19 06:07 06:07 10:08 Hgb 6.8 L Hct 20.5 L D MCV MCH RDW POC Glucose 185 H Magnesium 5.20 H AST Lactate Dehydrogenase Crossmatch 03/10/19 03/10/19 03/10/19 14:08 18:13 22:05 Hgb Hct MCV MCH RDW POC Glucose 141 H 150 H 135 H Magnesium AST Lactate Dehydrogenase Crossmatch 03/11/19 03/11/19 03/11/19 05:18 11:13 20:20 Hgb 6.1 L 6.0 L Hct 18.2 L* 17.9 L* MCV MCH RDW POC Glucose Magnesium AST Lactate Dehydrogenase Crossmatch See Detail Laboratory Results - last 24 hr 03/11/19 03/11/19 11:13 20:20 Hgb 6.0 L Hct 17.9 L* Blood Type O POSITIVE Antibody Screen Negative Crossmatch See Detail
[2019-03-12 14:46] LABS: Hematocrit 23.1 % (30.3-42.9); Hemoglobin 7.8 gm/dl (10.1-14.3)
[2019-03-12 18:11] VITALS: BP 153/92
--- NOTE | 2019-04-01 19:05 | Discharge Summary ---
Providers - Providers Date of Admission: 03/08/19 18:45 Date of discharge: 03/12/19 Attending physician: WOJCIECH SHABAZZ MD 03/11/19 12:31 Consult to Anesthesiology [CONS] Stat Consulting Provider: BASSEM HIGGINS Reason For Exam: Headache unrelieved with medicine Primary care physician: WOJCIECH SHABAZZ MD Hospitalization Reason for admission: induction of labor (preeclampsia at 36 + weeks) Delivery: Episiotomy: none Laceration: none complications: transfusion (1 unit PRBC) Discharge diagnosis: delivery [place] baby: male Condition at discharge: Stable Disposition: DC-01 TO HOME OR SELFCARE - Discharge Diagnoses (1) Anemia due to blood loss, acute Status: Acute (2) Status post normal vaginal delivery Status: Acute Plan - Discharge Medications Prescriptions: Ferrous Sulfate [Ferrous Sulfate 324 MG] 324 mg PO Q12HR #90 tablet. Ibuprofen [Motrin 600 MG tab] 600 mg PO Q6H #30 tablet - Provider Discharge Summary Additional instructions: [] Smoking cessation referral if applicable(refer to patient education folder for contact #) [] Refer to [facility] Booklet Call your doctor immediately for: * Fever > 100.5 * Heavy vaginal bleeding ( >1 pad per hour) * Severe persistent headache * Shortness of breath * Reddened, hot, painful area to leg or breast * Drainage or odor from incision. * Keep incision clean and dry at all times and follow doctor's instructions regarding bathing/showering - Follow up plan Follow up: WOJCIECH SHABAZZ MD [Primary Care Provider] - 6 Weeks Forms: [facility] Discharge Summary
== END 2019-03-12 19:23 | disposition home or self-care (01) | DRG 775 ==
LOC: TRG 18:44 → LD 18:45 → OB 03-10 15:00
PROVIDERS: ADMIT Obstetrics & Gynecology; ATTEND Obstetrics & Gynecology
PROC: 10E0XZZ Delivery of Products of Conception, External Approach (ICD-10-PCS; principal; 2019-03-09)
PROC: 3E0P7VZ Introduction of Hormone into Female Reproductive, Via Natural or Artificial Opening (ICD-10-PCS; 2019-03-09)
PROC: 3E0R3BZ Introduction of Anesthetic Agent into Spinal Canal, Percutaneous Approach (ICD-10-PCS; 2019-03-09)
PROC: 00HU33Z Insertion of Infusion Device into Spinal Canal, Percutaneous Approach (ICD-10-PCS; 2019-03-09)
PROC: 30233N1 Transfusion of Nonautologous Red Blood Cells into Peripheral Vein, Percutaneous Approach (ICD-10-PCS; 2019-03-12)
DX: O11.4 Pre-existing hypertension with pre-eclampsia, complicating childbirth (principal); O99.02 Anemia complicating childbirth; D62 Acute posthemorrhagic anemia; O60.14X0 Preterm labor third trimester with preterm delivery third trimester, not applicable or unspecified; O24.429 Gestational diabetes mellitus in childbirth, unspecified control; O99.824 Streptococcus B carrier state complicating childbirth; O99.52 Diseases of the respiratory system complicating childbirth; O99.284 Endocrine, nutritional and metabolic diseases complicating childbirth; J45.909 Unspecified asthma, uncomplicated; E05.90 Thyrotoxicosis, unspecified without thyrotoxic crisis or storm; O99.314 Alcohol use complicating childbirth; O99.344 Other mental disorders complicating childbirth; F32.9 Major depressive disorder, single episode, unspecified; Z82.49 Family history of ischemic heart disease and other diseases of the circulatory system; Z3A.36 36 weeks gestation of pregnancy; Z37.0 Single live birth; Z80.3 Family history of malignant neoplasm of breast; Z80.8 Family history of malignant neoplasm of other organs or systems; Z79.899 Other long term (current) drug therapy
CPT/HCPCS: 36415; 59200; 81001; 82962; 83615; 83735; 84450; 84460; 84550; 85014; 85018; 85027; 86850; 86900; 86901; 86920; G0378; J0290; J0595; J0702; J1750; J2590; J3010; J3475; J3490; J7030; J7040; J7120; P9016; Q0169

== ENCOUNTER 2020-02-27 22:26 | Inpatient (IN) | payer MEDICAID ==
[2020-02-27] MEDS ORDERED: ePHEDrine SULFATE 50 MG/1 ML INJ IV PRN (23:42)
[2020-02-27] MEDS ORDERED: TERBUTALINE 1 MG/1 ML INJ SUB-Q PRN (23:42)
[2020-02-27] MEDS ORDERED: MINERAL OIL 30 ML ORAL LIQD PO PRN (23:42)
[2020-02-27] MEDS ORDERED: LIDOCAINE (2%) 20 MG/1 ML VIAL 20 ML MDV INFILTRATI ONE (23:42)
[2020-02-27] MEDS ORDERED: OXYTOCIN DRIP 30 UNITS/500 ML BAG IV SCH ×2 (23:45)
[2020-02-27] MEDS ORDERED: LACTATED RINGERS 1,000 ML IV SCH (23:45)
--- NOTE | 2020-02-27 23:46 | History and Physical Report ---
History of Present Illness Date of examination: 02/27/20 Date of admission: 02/27/20 23:07 Chief complaint: precipitous delivery History of present illness: precipitous delivery,[facility], no records Past History - Obstetrical History : 12 Medications and Allergies Allergies Allergy/AdvReac Type Severity Reaction Status Date / Time lisinopril Allergy Rash Verified 03/09/19 10:54 Home Medications Medication Instructions Recorded Confirmed Last Taken Type Albuterol 2 puff PRN PRN 01/29/16 03/09/19 03/04/19 08:00 History Albuterol Mdi (or & Nicu Only) 2 puff IH QID PRN #1 inhalation 03/13/18 03/09/19 Unknown Rx [ProAir HFA Inhaler] Plus Tablet 1 tab PO QDAY 03/09/19 03/09/19 03/08/19 10:00 History 1 tab Ferrous Sulfate [Ferrous Sulfate 324 mg PO Q12HR #90 tablet. 03/12/19 Unknown Rx 324 MG] Ibuprofen [Motrin 600 MG tab] 600 mg PO Q6H #30 tablet 03/12/19 Unknown Rx Vit-Fe Fumar-FA [ 1 each PO QDAY tablet 03/12/19 Unknown Rx Vitamin] Active Meds: Active Medications Ephedrine Sulfate (Ephedrine Sulfate) 10 mg IV Q2M PRN PRN Reason: Hypotension Oxytocin/Sodium Chloride (Pitocin/Ns 30 Unit/500ml) 30 units in 500 mls @ 2 mls/hr IV TITR GIANFRANCO; Protocol Lactated Ringer's (Lactated Ringers) 1,000 mls @ 125 mls/hr IV DIRECT GIANFRANCO Oxytocin/Sodium Chloride (Pitocin/Ns 30 Unit/500ml) 30 units in 500 mls @ 40 mls/hr IV TITR GIANFRANCO; Protocol Lidocaine (Xylocaine 2%) 20 ml INFILTRATI ONCE ONE Stop: 02/27/20 23:43 Mineral Oil (Mineral Oil) 30 ml PO QHS PRN PRN Reason: Constipation Terbutaline Sulfate (Brethine) 0.25 mg SUB-Q ONCE PRN PRN Reason: Hyperstimulation/Hypertonicity - Vital Signs Vital signs: Vital Signs Pulse Pulse Ox 86 98 02/27/20 23:05 02/27/20 23:05 Temp Pulse Resp BP Pulse Ox 98.8 F 71 18 144/87 98 12/07/20 23:35 02/27/20 23:40 02/27/20 23:35 02/27/20 23:35 02/27/20 23:40 Results All other labs normal. Assessment and Plan obtain records delivery complete, no complications Josephine Negrete MD
[2020-02-27] MEDS ORDERED: HYDROcodone/ACETAMINOPHEN 5-325 MG TAB PO PRN (23:47)
[2020-02-27] MEDS ORDERED: PROMETHAZINE 25 MG TAB PO PRN (23:47)
[2020-02-27] MEDS ORDERED: diphenhydrAMINE 25 MG CAP PO PRN (23:47)
[2020-02-27] MEDS ORDERED: WITCH HAZEL/ GLYCERIN PAD TP PRN (23:47)
[2020-02-27] MEDS ORDERED: LANOLIN/ZINC/DIMETHICONE (LANSINOH) 7 GM TP PRN (23:47)
[2020-02-27] MEDS ORDERED: PROMETHAZINE 25 MG RECT SUPP PR PRN (23:47)
[2020-02-27] MEDS ORDERED: ONDANSETRON 4 MG/2 ML INJ IV PRN (23:47)
[2020-02-27] MEDS ORDERED: ACETAMINOPHEN 325 MG TAB PO PRN (23:47)
[2020-02-27] MEDS ORDERED: MAGNESIUM HYDROXIDE (MOM) ORAL LIQD UDC PO PRN (23:47)
--- NOTE | 2020-02-27 23:47 | Procedure Note ---
OB Delivery Note - Delivery Date of Delivery: 02/27/20 Surgeon: KVNG PARRISH Estimated blood loss: <100cc - Vaginal Delivery presentation: vertex Delivery position: OA Intrapartum events: precipitous labor- <3hr Delivery induction: none Route of delivery: Delivery placenta: spontaneous Delivery cord: 3 umbilical vessels Episiotomy: none Delivery laceration: none Delivery comments: precipitous delivery on stretcher placenta delivered spontaneously with no complications intact perineum,firm fundus EBL 100ml All sponge, needle and instrument counts correctx2 Mom and baby stable to in stable condition Josephine Parrish MD
[2020-02-28 00:25] LABS: Hematocrit 28.4 % (30.3-42.9); Hemoglobin 9.3 gm/dl (10.1-14.3); Mean Corpuscular HGB Conc 33 % (30-34); Mean Corpuscular Volume 74 fl (79-97); Platelet Count 264 K/mm3 (140-440); Red Blood Count 3.82 M/mm3 (3.65-5.03); Red Cell Distribution Width 16.7 % (13.2-15.2)
[2020-02-28] MEDS: IBUPROFEN 600 MG TAB PO SCH ×3 (01:27→22:20)
--- NOTE | 2020-02-28 11:07 | Discharge Summary ---
Providers - Providers Date of Admission: 02/27/20 23:07 Date of discharge: 02/29/20 Attending physician: KVNG PARRISH MD Primary care physician: KVNG PARRISH MD Hospitalization Reason for admission: active labor Delivery: Episiotomy: none Laceration: none Other procedures: none complications: none Discharge diagnosis: IUP at term delivered baby: female Hospital course: See admission H & P; OB delivery summary and PP progress notes Condition at discharge: Stable Disposition: DC-01 TO HOME OR SELFCARE - Discharge Diagnoses (1) Status post normal vaginal delivery Status: Acute (2) Anemia Status: Acute Qualifiers: Anemia type: iron deficiency Comment: Asymptomatic (3) Chronic hypertension affecting Status: Acute Plan - Discharge Medications Prescriptions: labetaloL [Labetalol 100mg TAB] 200 mg PO BID 14 Days #28 tablet - Provider Discharge Summary Activity: routine, no sex for 6 weeks, no heavy lifting 4 weeks, no strenuous exercise Diet: other (Iron rich diet) Instructions: routine Additional instructions: [] Smoking cessation referral if applicable(refer to patient education folder for contact #) [] Refer to [facility] Booklet Call your doctor immediately for: * Fever > 100.5 * Heavy vaginal bleeding ( >1 pad per hour) * Severe persistent headache * Shortness of breath * Reddened, hot, painful area to leg or breast - Follow up plan Follow up: KVNG PARRISH MD [Primary Care Provider] - 7 Days
[2020-02-28] MEDS ORDERED: medroxyPROGESTERone ACETATE 150 MG/ML SYRINGE IM SCH (11:30)
[2020-02-28 20:11] LABS: Hematocrit 26.9 % (30.3-42.9); Hemoglobin 8.9 gm/dl (10.1-14.3)
[2020-02-29] MEDS: IBUPROFEN 600 MG TAB PO SCH (05:18)
[2020-02-29 13:56] VITALS: BP 135/84
== END 2020-02-29 14:25 | disposition home or self-care (01) | DRG 774 ==
LOC: TRG 22:26 → APU 22:29 → LD 22:37 → TRG 23:06 → LD 23:07 → OB 02-28 01:22
PROVIDERS: ADMIT Obstetrics & Gynecology; ATTEND Obstetrics & Gynecology
PROC: 10E0XZZ Delivery of Products of Conception, External Approach (ICD-10-PCS; principal; 2020-02-27)
DX: O62.3 Precipitate labor (principal); O10.02 Pre-existing essential hypertension complicating childbirth; Z3A.38 38 weeks gestation of pregnancy; Z37.0 Single live birth; Z20.828 Contact with and (suspected) exposure to other viral communicable diseases
CPT/HCPCS: 36415; 85014; 85018; 85027; 86850; 86900; 86901; 88307; G0378; J1050; J2590; U0003

== ENCOUNTER 2020-04-18 12:27 | Emergency (ER) | payer MEDICAID ==
[2020-04-18 12:44] VITALS: BP 154/98
--- NOTE | 2020-04-18 12:44 | Event Note ---
ED Screening Note ED Screening Note: sent by [facility] post htn off labetolol and cardizem This initial assessment/diagnostic orders/clinical plan/treatment(s) is/are subject to change based on patients health status, clinical progression and re- assessment by fellow clinical providers in the ED. Further treatment and workup at subsequent clinical providers discretion. Patient/guardian urged not to elope from the ED as their condition may be serious if not clinically assessed and managed. Initial orders include: labs/ua
[2020-04-18 14:18] LABS: Bacteria,Urine 2+ /HPF (Negative); Bilirubin,Urine NEG (Negative); Blood,Urine NEG (Negative); Color,Urine Yellow (Yellow); Mucus,Urine FEW /HPF; Protein,Urine <15 mg/dL mg/dL (Negative)
[2020-04-18 14:40] LABS: Hemoglobin 11.4 gm/dl (10.1-14.3); Mean Corpuscular HGB Conc 33 % (30-34); Mean Corpuscular Volume 74 fl (79-97); Platelet Count 321 K/mm3 (140-440); Red Blood Count 4.71 M/mm3 (3.65-5.03)
[2020-04-18 14:41] LABS: Red Cell Distribution Width 20.3 % (13.2-15.2)
[2020-04-18 15:01] LABS: Alanine Aminotransferase 12 units/L (7-56); Albumin 4.2 g/dL (3.9-5); Blood Urea Nitrogen 11 mg/dL (7-17); Calcium 9.1 mg/dL (8.4-10.2); Hemolysis Index 0
[2020-04-18 15:05] LABS: BUN/Creatinine Ratio 16
[2020-04-18] MEDS ORDERED: ACETAMINOPHEN 325 MG TAB PO ONE (15:53)
== END 2020-04-18 16:41 ==
LOC: ED 12:27
DX: I10 Essential (primary) hypertension (principal); Z53.21 Procedure and treatment not carried out due to patient leaving prior to being seen by health care provider
CPT/HCPCS: 36415; 80053; 81001; 84550; 85027

== ENCOUNTER 2020-07-27 06:20 | Day surgery (SDC) | payer MEDICAID ==
[2020-07-23 10:38] LABS: Hematocrit 34.2 % (30.3-42.9); Hemoglobin 10.7 gm/dl (10.1-14.3); Mean Corpuscular HGB Conc 31 % (30-34); Mean Corpuscular Volume 77 fl (79-97); Platelet Count 270 K/mm3 (140-440); Red Blood Count 4.43 M/mm3 (3.65-5.03); Red Cell Distribution Width 16.5 % (13.2-15.2)
[~2020-07-27 06:20] MED LIST: BUPIVACAINE/PF (0.5%) 5 MG/1 ML 30 ML VIAL INFILTRATI ONE; SODIUM CHLORIDE 0.9% IRR 1,500 ML BOTTLE IR ONE
[2020-07-27] MEDS ORDERED: BACTERIOSTATIC SODIUM CHLORIDE 0.9% 30 ML VIAL INFILTRATI ONE (06:41)
[2020-07-27] MEDS ORDERED: LACTATED RINGERS 1,000 ML ONE (06:42)
[2020-07-27] MEDS ORDERED: LACTATED RINGERS 1,000 ML IV SCH (06:55)
--- NOTE | 2020-07-27 07:07 | Anesthesia Consultation ---
Anesthesia Consult and Med Hx Date of service: 07/27/20 - Airway Anesthetic Teeth Evaluation: Good ROM Head & Neck: Adequate Mental/Hyoid Distance: Adequate Mallampati Class: Class II Intubation Access Assessment: Good - Pulmonary Exam CTA: Yes - Cardiac Exam Cardiac Exam: RRR - Pre-Operative Health Status ASA Pre-Surgery Classification: ASA2 Proposed Anesthetic Plan: General - Pulmonary Hx Smoking: No Hx Asthma: Yes (Inhaler daily) COPD: No Hx Pneumonia: No Hx Sleep Apnea: No - Cardiovascular System Hx Hypertension: Yes (Beta Consatnza taken this am) Hx Heart Attack/AMI: No Hx Pacemaker: No Hx Internal Defibrillator: No Hx Heart Murmur: No - Central Nervous System Hx Seizures: No Hx Back Pain: No Hx Psychiatric Problems: No - Endocrine Hx Renal Disease: No Hx End Stage Renal Disease: No Hx Cirrhosis: No Hx Liver Disease: No Hx Hypothyroidism: No Hx Hyperthyroidism: No - Hematic Hx Anemia: Yes Hx Sickle Cell Disease: No - Other Systems Hx Alcohol Use: No (PAIN SCORE [0]) Hx Substance Use: No Hx Cancer: No Hx Obesity: No
[2020-07-27] MEDS ORDERED: propofoL 200 MG/20 ML VIAL IV ONE (07:08)
[2020-07-27] MEDS ORDERED: fentaNYL 100 MCG/2 ML INJ ONE (07:08)
[2020-07-27] MEDS ORDERED: LIDOCAINE MPF (2%) 20 MG/1 ML VIAL 5 ML ONE (07:09)
[2020-07-27] MEDS ORDERED: ROCURONIUM 50 MG/5 ML INJ IV ONE (07:09)
[2020-07-27] MEDS ORDERED: KETOROLAC 30 MG/1 ML INJ ONE (07:09)
[2020-07-27] MEDS ORDERED: ONDANSETRON 4 MG/2 ML INJ ONE (07:09)
[2020-07-27] MEDS ORDERED: SUCCINYLCHOLINE CHLORIDE 200 MG/10 ML INJ MDV ONE (07:09)
[2020-07-27] MEDS ORDERED: dexAMETHasone 20 MG/5 ML VIAL ONE (07:09)
--- NOTE | 2020-07-27 07:09 | Anesthesia Day of Surgery ---
Anesthesia Day of Surgery - Day of Surgery Patient Examined: Yes Patient H&P Reviewed: Yes Patient is NPO: Yes Beta Blockers: Yes
[2020-07-27] MEDS ORDERED: BUPIVACAINE/PF (0.5%) 5 MG/1 ML 30 ML VIAL INFILTRATI ONE ×3 (07:15→09:26)
[2020-07-27] MEDS ORDERED: MIDAZOLAM 2 MG/2 ML INJ IV NR (08:00)
[2020-07-27] MEDS ORDERED: SODIUM CHLORIDE 0.9% IRR 1,500 ML BOTTLE IR ONE (09:26)
[2020-07-27] MEDS ORDERED: NEOSTIGMINE 10MG/10 ML INJ MDV ONE (09:32)
[2020-07-27] MEDS ORDERED: GLYCOPYRROLATE 0.4 MG/2 ML INJ ONE ×3 (09:32)
--- NOTE | 2020-07-27 09:47 | Post Operative Note ---
Date of procedure: 07/27/20 Pre-op diagnosis: Sterilization Post-op diagnosis: same Findings: General abdominal survey within normal limits. 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 No other anomalies noted. Procedure: Indication: Patient is a 40-year-old grand multipara who is here for sterilization via laparoscopic bilateral tubal ligation with Filshie clips. Prior to surgery, patient fully consented for the surgery. Risks, benefits, and alternatives were all discussed with the patient including risk of bleeding, infection, and potential for injury. Patient understands and accepts these risks. Patient agrees to proceed with surgery. All questions were answered. Patient also made aware of the approximately 05/999 chance of failure. Patient understood and accepted that. Procedure: Laparoscopic bilateral tubal ligation. Patient taken the operating room and prepped and draped in usual fashion. Attention was first turned vaginally where single-tooth tenaculum was applied to the anterior lip of the cervix and an acorn uterine manipulator was placed. Attention was now turned abdominally where a 5 mm incision was made in the umbilicus. Veres needle then placed in the abdominal cavity. The abdomen was appropriately insufflated with CO2 gas. Veres needle removed and the 5 mm trocar was placed in abdominal cavity. Placement confirmed with the camera. Attention was turned suprapubically where an 8 mm incision was made and the 8 mm trocar was placed suprapubically in the midline under direct visualization. Trocar placed successfully and without difficulty. Attention was first turned to assess in the abdomen and pelvis. Findings noted above. Attention turned to the tubal ligation where a Filshie clip was applied to each tube. Each clip encompassed the full width of the tube on each side and good hemostasis was noted afterwards on both sides. At this point the abdomen was fully desufflated. Trochars were removed. Trocar sites were closed with 4-0 Vicryl in a subcuticular fashion followed by Marcaine. The acorn uterine manipulator and single-tooth tenaculum were removed. Procedure concluded at this point. Patient tolerated the procedure well. All instrument lap counts were correct. Patient taken to the recovery room in stable condition. Anesthesia: GETA Surgeon: ELIESER CONKLIN Estimated blood loss: minimal Pathology: none Condition: stable Disposition: PACU
--- NOTE | 2020-07-27 09:48 | Short Stay Summary ---
Short Stay Documentation Date of service: 07/27/20 Narrative H&P: Patient presented for her laparoscopic bilateral tubal ligation with Filshie clips on 07/27/2020. Surgery was uncomplicated. Please see operative report for details. Patient to follow-up in the office 2 weeks postop - History H&P: obtained from office - Allergies and Medications Current Medications: Allergies lisinopril Allergy (Verified 07/20/20 16:09) Swelling ALSO CAUSES RASH Home Medications Medication Instructions Recorded Confirmed Last Taken Type Albuterol Mdi (or & Nicu Only) 2 puff IH QID PRN #1 inhalation 03/13/18 07/27/20 07/27/20 05:00 Rx [ProAir HFA Inhaler] labetaloL [Labetalol 200mg TAB] 200 mg PO BID 06/14/20 07/27/20 07/27/20 05:00 History Active Medications Lactated Ringer's (Lactated Ringers) 1,000 mls @ 75 mls/hr IV DIRECT GIANFRANCO Midazolam HCl (Midazolam 2 Mg/2 Ml Inj) 2 mg IV PREOP NR Stop: 07/27/20 23:59 Last Admin: 07/27/20 08:05 Dose: 2 mg Documented by: - Disposition Condition at discharge: Stable Disposition: DC-01 TO HOME OR SELFCARE Short Stay Discharge Plan Follow up with: VAHID ORTIZ MD [Primary Care Provider] - 7 Days
[2020-07-27] MEDS ORDERED: HYDROmorphone 1 MG/1 ML INJ ONE (10:21)
[2020-07-27] MEDS ORDERED: HYDROmorphone 1 MG/1 ML INJ IV PRN (10:22)
[2020-07-27] MEDS ORDERED: ONDANSETRON 4 MG/2 ML INJ IV PRN (10:22)
[2020-07-27 12:17] VITALS: BP 170/97
--- NOTE | 2020-07-27 14:58 | Post Anesthesia Evaluation ---
- Post Anesthesia Evaluation Patient Participated: Yes Airway Patent: Yes Stable Respiratory Function: Yes Nausea/Vomiting: No Temp > 96.8F: Yes Pain Manageable: Yes Adequeate Hydration: Yes Anesthesia Complications: No Block Receding Appropriately: Not Applicable Patient on Ventilator: No
== END 2020-07-27 06:21 | disposition home or self-care (01) ==
LOC: OR 06:20
PROVIDERS: ATTEND Obstetrics & Gynecology
DX: Z30.2 Encounter for sterilization (principal); Z20.822 Contact with and (suspected) exposure to COVID-19; I10 Essential (primary) hypertension; J45.909 Unspecified asthma, uncomplicated; D64.9 Anemia, unspecified; Z79.899 Other long term (current) drug therapy; Z88.8 Allergy status to other drugs, medicaments and biological substances; Z98.890 Other specified postprocedural states; Z72.89 Other problems related to lifestyle; Z80.8 Family history of malignant neoplasm of other organs or systems; Z82.49 Family history of ischemic heart disease and other diseases of the circulatory system
CPT/HCPCS: 36415; 58671; 84703; 85027; J0330; J1100; J1170; J1885; J2250; J2405; J2704; J2710; J3010; J7120; U0003